=== PATIENT | female | born 1975 | race Caucasian/White ===

== ENCOUNTER 2016-12-25 09:48 | Emergency (ER) | payer OTHER ==
[2016-12-25] MEDS ORDERED: SODIUM CHLORIDE 0.9% 1,000 ML IV ONE (10:24)
[2016-12-25] MEDS ORDERED: diphenhydrAMINE INJ 50 MG/ML VIAL IVP STA (10:25)
[2016-12-25] MEDS ORDERED: DEXAMETHASONE 10 MG/ML VIAL IVP STA (10:25)
[2016-12-25] MEDS ORDERED: PROCHLORPERAZINE 10 MG/2 ML VIAL IVP STA (10:25)
[2016-12-25] MEDS ORDERED: KETOROLAC 60 MG/2 ML VIAL IVP STA (10:25)
[2016-12-25] MEDS ORDERED: MECLIZINE 12.5 MG TABLET PO STA (10:25)
[2016-12-25] MEDS ORDERED: KETOROLAC 30 MG/ML VIAL ONE (10:34)
[2016-12-25] MEDS ORDERED: diphenhydrAMINE INJ 50 MG/ML VIAL ONE (10:34)
[2016-12-25] MEDS ORDERED: DEXAMETHASONE 10 MG/ML VIAL ONE (10:35)
[2016-12-25] MEDS ORDERED: MECLIZINE 12.5 MG TABLET PO ONE (10:35)
[2016-12-25] MEDS ORDERED: PROCHLORPERAZINE 10 MG/2 ML VIAL ONE (10:35)
== END 2016-12-25 12:15 | disposition home or self-care (01) ==
DX: G43.109 Migraine with aura, not intractable, without status migrainosus (principal); H81.09 Meniere's disease, unspecified ear; G40.909 Epilepsy, unspecified, not intractable, without status epilepticus
CPT/HCPCS: 96374; 96375; 99283; 99284; A9270

== ENCOUNTER 2017-01-22 10:00 | Outpatient (CLI) | payer OTHER | END 2017-01-22 10:01 | disposition home or self-care (01) | DX: M79.662 Pain in left lower leg (principal) ==

== ENCOUNTER 2017-01-23 12:00 | Emergency (ER) | payer OTHER | END 2017-01-23 15:23 | disposition home or self-care (01) | DX: S86.912A Strain of unspecified muscle(s) and tendon(s) at lower leg level, left leg, initial encounter (principal); X58.XXXA Exposure to other specified factors, initial encounter; G40.909 Epilepsy, unspecified, not intractable, without status epilepticus; I73.00 Raynaud's syndrome without gangrene; H81.09 Meniere's disease, unspecified ear ==

== ENCOUNTER 2017-01-29 16:30 | Outpatient (CLI) | payer OTHER | END 2017-01-29 23:59 | disposition home or self-care (01) | DX: N30.10 Interstitial cystitis (chronic) without hematuria (principal) ==

== ENCOUNTER 2017-12-30 08:00 | Outpatient (CLI) | payer OTHER ==
[2017-12-30 19:32] LABS: BASOPHILS % (AUTO) 0.3 %; EOSINOPHILS # (AUTO) 0.1 10^3/uL (0.0-0.7); EOSINOPHILS % (AUTO) 1.6 %; HGB - HEMOGLOBIN 13.2 g/dL (12.0-16.0); LYMPHOCYTES # (AUTO) 1.4 10^3/uL (1.5-3.5); LYMPHOCYTES % (AUTO) 23.8 %; MEAN CORPUSCULAR HEMOGLOBIN 29.4 pg (27.0-31.0); MEAN CORPUSCULAR HGB CONC 33.2 g/dL (32.0-36.0); MEAN CORPUSCULAR VOLUME 88.6 fL (81.0-99.0); MEAN PLATELET VOLUME 8.4 fL (7.9-10.8); MONOCYTES # (AUTO) 0.3 10^3/uL (0.0-1.0); MONOCYTES % (AUTO) 4.9 %; NEUTROPHILS # (AUTO) 4.2 10^3/uL (1.5-6.6); NEUTROPHILS % (AUTO) 69.4 %; PLT - PLATELET COUNT 255 10^3/uL (130-450); RED BLOOD COUNT 4.48 10^6/uL (4.20-5.40); RED CELL DISTRIBUTION WIDTH 12.8 % (12.0-15.0); WHITE BLOOD COUNT 6.1 x10^3/uL (4.8-10.8)
[2017-12-31 13:41] LABS: HEPATITIS C ANTIBODY NON-REACTIVE (NON-REACTIVE); HIV AG/AB 4TH GEN NON-REACTIVE (NON-REACTIVE)
== END 2017-12-30 08:01 | disposition home or self-care (01) ==
LOC: LAB.WCP 08:00
PROVIDERS: ATTEND Physician Assistant
DX: Z20.2 Contact with and (suspected) exposure to infections with a predominantly sexual mode of transmission (principal); R10.13 Epigastric pain; R30.0 Dysuria
CPT/HCPCS: 36415; 81599; 85025; 86592; 86803; 87086; 87389; 87480; 87491; 87510; 87591; 87660

== ENCOUNTER 2017-12-30 08:00 | Outpatient (CLI) | payer OTHER | END 2017-12-30 08:01 | disposition home or self-care (01) | LOC: LAB.WCP 08:00 | PROVIDERS: ATTEND Physician Assistant | DX: R30.0 Dysuria (principal) | CPT/HCPCS: 87086 ==

== ENCOUNTER 2018-11-20 08:00 | Outpatient (CLI) | payer OTHER | END 2018-11-20 23:59 | disposition home or self-care (01) | LOC: LAB.R 08:00 | PROVIDERS: ATTEND Nurse Practitioner | DX: R30.0 Dysuria (principal); N30.90 Cystitis, unspecified without hematuria | CPT/HCPCS: 87086; 87181 ==

== ENCOUNTER 2019-11-08 10:46 | Emergency (ER) | payer OTHER ==
[2019-11-08 11:36] LABS: RAPID STREP SCREEN Negative (Negative)
--- NOTE | 2019-11-08 12:23 | ED Physician Documentation ---
PD HPI URI - Stated complaint Stated Complaint: SORE THROAT/COUGH - Chief complaint Chief Complaint: Heent - History obtained from History obtained from: Patient (She is been sick for 2 weeks with a cough that is worse when she lays down. It is nonproductive. She is not short of breath. She has nasal congestion and a couple days of sore throat as well. No fevers. No recent travel.) Review of Systems Constitutional: denies: Fever, Chills, Fatigue Ears: reports: Ear pain (She feels like the ear pain is radiating from the throat) Nose: reports: Rhinorrhea / runny nose, Congestion. 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 - Present Medications Home Medications: Ambulatory Orders Medication Instructions Recorded Confirmed Ibuprofen [Motrin] 400 mg PO Q6H PRN 06/20/14 01/23/17 Meclizine HCl [Antivert] 12.5 mg PO DAILY PRN 06/20/14 01/23/17 Ondansetron [Zofran] 4 mg PO Q6H PRN 06/20/14 01/23/17 Rizatriptan Benzoate [Maxalt] 5 mg PO DAILY PRN 08/01/14 01/23/17 LORazepam [Ativan] 1 mg PO TID PRN #10 tablet 08/02/14 01/23/17 Acyclovir 400 mg PO TID 01/29/15 01/23/17 hydrOXYzine PAMOATE [Vistaril] 25 mg PO DAILY 01/23/17 01/23/17 Guaifenesin/Pseudoephedrne HCl 1 each PO BID PRN #20 tab.er.12h 11/08/19 [Mucinex D ER 600-60 mg Tablet] Mometasone Furoate [Nasonex] 1 spray NS BID #1 spray.pump 11/08/19 - Allergies Allergies/Adverse Reactions: Allergies Allergy/AdvReac Type Severity Reaction Status Date / Time acetaminophen [From Vicodin] Allergy Unknown Verified 11/08/19 10:59 azithromycin Allergy Unknown Verified 11/08/19 10:59 codeine Allergy Unknown Verified 11/08/19 10:59 cyclobenzaprine HCl * Allergy Unknown Verified 11/08/19 10:59 [From Flexeril] hydrocodone bitartrate * Allergy Unknown Verified 11/08/19 10:59 [From Vicodin] meperidine HCl * Allergy Unknown Verified 11/08/19 10:59 [From Demerol] opium tincture Allergy Unknown Verified 11/08/19 10:59 promethazine HCl * Allergy Unknown Verified 11/08/19 10:59 [From Phenergan] - Social History Does the pt smoke?: No Smoking Status: Never smoker Does the pt drink ETOH?: No Does the pt have substance abuse?: No PD ED PE NORMAL - Vitals Vital signs reviewed: Yes - General General: Alert and oriented X 3, No acute distress - HEENT HEENT: PERRL, EOMI, Other (Red tonsillar pillars, no exudates or swelling. Minimal anterior cervical adenopathy, TMs are normal.) - Respiratory Respiratory: No respiratory distress, Clear bilaterally - Neuro Neuro: Alert and oriented X 3, Normal speech Results - Vitals Vitals: Vital Signs - 24 hr 11/08/19 10:59 Temperature 37 C Heart Rate 93 Respiratory 18 Rate Blood Pressure 103/61 O2 Saturation 99 Oxygen O2 Source Room air - Labs Labs: Laboratory Tests 11/08/19 11:06 Group A Strep Rapid Negative PD MEDICAL DECISION MAKING - ED course ED course: 43-year-old woman with signs and symptoms of a viral URI, rapid strep negative. Conservative care was advised. Departure - Departure Disposition: 01 Home, Self Care Clinical Impression: Viral URI Condition: Good Record reviewed to determine appropriate education?: Yes Instructions: ED URI Viral Prescriptions: Guaifenesin/Pseudoephedrne HCl [Mucinex D ER 600-60 mg Tablet] 1 each PO BID PRN #20 tab.er.12h PRN Reason: congestion Mometasone Furoate [Nasonex] 1 spray NS BID #1 spray.pump Comments: You were seen today for an illness that brought in some purposes sounds like a viral illness. Your strep test is negative. We will culture your throat and if a bacterial pathogen is isolated we will call you and call in antibiotics at that juncture. Return for new or worsening symptoms. Follow-up with your doctor in a week or 2 if not better.
[2019-11-08 12:32] VITALS: BP 123/75
== END 2019-11-08 12:31 | disposition home or self-care (01) ==
LOC: ED 10:46
DX: J06.9 Acute upper respiratory infection, unspecified (principal)
CPT/HCPCS: 87070; 87077; 87430; 99283; 99284

== ENCOUNTER 2019-12-14 08:59 | Emergency (ER) | payer OTHER ==
--- NOTE | 2019-12-14 09:20 | ED Physician Documentation ---
PD HPI HEENT - Stated complaint Stated Complaint: VOMITING/DIZZINESS - Chief complaint Chief Complaint: General - History obtained from History obtained from: Patient - History of Present Illness Timing - onset: Last night Timing - duration: Days (10/08) Timing - details: Abrupt onset, Still present Location: Other (She states she had onset of headache consistent with migraine associated with some nausea but then developed marked nausea and vomiting with onset of vertigo. It is worse when she opens her eyes and turns her head but still feeling nauseated even when holding still. She denies any localized weaknesses numbness visual loss or scotomata. She states she has had similar in the past with Mnire's disease and vertigo and also will get nausea and vomiting with her migraines. She denies any recent head injury. She has not had any cold or flu symptoms.) Improves: Other (moderately improved with holding head still) Worsens: Position Associated symptoms: Headache. No: Fever, Congestion, Swollen nodes, Facial swelling Similar symptoms before: Diagnosis (Has had Mnire's disease with episodes of labyrinthitis and positional vertigo. Has also had history of migraines in the past.) Recently seen: Not recently seen Review of Systems Constitutional: denies: Fever Nose: denies: Rhinorrhea / runny nose, Congestion Throat: denies: Sore throat Respiratory: denies: Cough GI: reports: Nausea, Vomiting. denies: Abdominal Pain, Diarrhea Skin: denies: Rash Neurologic: reports: Generalized weakness, Headache. 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 - Present Medications Home Medications: Ambulatory Orders Medication Instructions Recorded Confirmed Meclizine HCl [Antivert] 12.5 mg PO DAILY PRN 06/20/14 01/23/17 hydrOXYzine PAMOATE [Vistaril] 25 mg PO DAILY 01/23/17 01/23/17 LORazepam [Ativan] 1 mg PO Q8H PRN #15 tablet 12/14/19 Meclizine HCl [Motion Sickness 25 mg PO Q6H PRN #25 tablet 12/14/19 Relief] Ondansetron Odt [Zofran] 4 mg TL Q6H PRN #10 tablet 12/14/19 SUMAtriptan succinate [Sumatriptan 50 mg PO BID PRN #10 tablet 12/14/19 Succinate] dexAMETHasone [Decadron] 4 mg PO DAILY #5 tablet 12/14/19 - Allergies Allergies/Adverse Reactions: Allergies Allergy/AdvReac Type Severity Reaction Status Date / Time acetaminophen [From Vicodin] Allergy Unknown Verified 12/14/19 09:03 azithromycin Allergy Unknown Verified 12/14/19 09:03 codeine Allergy Unknown Verified 12/14/19 09:03 cyclobenzaprine HCl * Allergy Unknown Verified 12/14/19 09:03 [From Flexeril] hydrocodone bitartrate * Allergy Unknown Verified 12/14/19 09:03 [From Vicodin] meperidine HCl * Allergy Unknown Verified 12/14/19 09:03 [From Demerol] opium tincture Allergy Unknown Verified 12/14/19 09:03 promethazine HCl * Allergy Unknown Verified 12/14/19 09:03 [From Phenergan] - Social History Does the pt smoke?: No Smoking Status: Never smoker Does the pt drink ETOH?: No Does the pt have substance abuse?: No PD ED PE NORMAL - Vitals Vital signs reviewed: Yes - General General: Alert and oriented X 3, Well developed/nourished, Other (Appears very uncomfortable with nausea and some dry heaving. She is holding her head very still. 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, No motor deficit, No sensory deficit, Normal speech Eye Opening: Spontaneous (Reluctantly opens her eyes as it does increase her dizziness and nausea) Motor: Obeys Commands Verbal: Oriented GCS Score: 15 Results - Vitals Vitals: Vital Signs - 24 hr 12/14/19 12/14/19 12/14/19 09:03 09:26 11:20 Temperature 36.1 C L Heart Rate 86 85 76 Respiratory 20 24 18 Rate Blood Pressure 150/91 H 122/65 110/69 O2 Saturation 100 100 100 12/14/19 12/14/19 13:30 14:28 Temperature Heart Rate 77 77 Respiratory 18 16 Rate Blood Pressure 98/60 98/60 O2 Saturation 100 100 Oxygen O2 Source Room air - Labs Labs: Laboratory Tests 12/14/19 12/14/19 12/14/19 08:15 08:15 09:15 WBC 8.2 RBC 4.51 Hgb 13.8 Hct 39.5 MCV 87.6 MCH 30.6 MCHC 34.9 RDW 13.0 Plt Count 225 MPV 9.7 Neut # (Auto) 6.4 Lymph # (Auto) 1.3 L Haines # (Auto) 0.4 Eos # (Auto) 0.1 Baso # (Auto) 0.0 Absolute Nucleated RBC 0.00 Nucleated RBC % 0.0 Sodium 135 Potassium 3.2 L Chloride 106 Carbon Dioxide 21 Anion Gap 8.0 BUN 18 Creatinine 0.6 Estimated GFR (MDRD) 108 Glucose 134 H Calcium 9.0 Magnesium 2.3 Total Bilirubin 0.7 AST 24 ALT 32 Alkaline Phosphatase 65 Total Protein 7.0 Albumin 4.1 Globulin 2.9 Albumin/Globulin Ratio 1.4 Lipase 31 Urine Color Urine Clarity Urine pH Ur Specific [place] Urine Protein Urine Glucose (UA) Urine Ketones Urine Occult Blood Urine Nitrite Urine Bilirubin Urine Urobilinogen Ur Leukocyte Esterase Ur Microscopic Review Urine Culture Comments Urine HCG, Qual 12/14/19 13:00 WBC RBC Hgb Hct MCV MCH MCHC RDW Plt Count MPV Neut # (Auto) Lymph # (Auto) Haines # (Auto) Eos # (Auto) Baso # (Auto) Absolute Nucleated RBC Nucleated RBC % Sodium Potassium Chloride Carbon Dioxide Anion Gap BUN Creatinine Estimated GFR (MDRD) Glucose Calcium Magnesium Total Bilirubin AST ALT Alkaline Phosphatase Total Protein Albumin Globulin Albumin/Globulin Ratio Lipase Urine Color YELLOW Urine Clarity CLEAR Urine pH 8.0 H Ur Specific [place] 1.020 Urine Protein NEGATIVE Urine Glucose (UA) NEGATIVE Urine Ketones NEGATIVE Urine Occult Blood NEGATIVE Urine Nitrite NEGATIVE Urine Bilirubin NEGATIVE Urine Urobilinogen 0.2 (NORMAL) Ur Leukocyte Esterase NEGATIVE Ur Microscopic Review NOT INDICATED Urine Culture Comments NOT INDICATED Urine HCG, Qual NEGATIVE - Rads (name of study) head CT Radiology: Prelim report reviewed (no acute process), See rad report PD MEDICAL DECISION MAKING - ED course Complexity details: re-evaluated patient (Patient with some improvement with meds targeted at migraine. ), considered differential (consider complex migraine as vertigo onset then with migraine type headache. Still with vertigo though. No focal deficits otherwise. Has had Menieres and migraines in the past, so abrupt vertigo and then triggered migraine. Will try meds for vertigo and also for migraine. ), d/w patient ED course: Slow improvement with meds, with improved migraine headahce and vertigo/nausea parallel. Departure - Departure Disposition: Home, Self Care Clinical Impression: Acute onset of severe vertigo Headache Qualifiers: Headache type: unspecified Headache chronicity pattern: acute headache Intractability: not intractable Qualified Code(s): R51 - Headache Condition: Stable Record reviewed to determine appropriate education?: Yes Instructions: ED Headache Migraine, ED Vertigo Unspecified Prescriptions: dexAMETHasone [Decadron] 4 mg PO DAILY #5 tablet LORazepam [Ativan] 1 mg PO Q8H PRN #15 tablet PRN Reason: Vertigo Meclizine HCl [Motion Sickness Relief] 25 mg PO Q6H PRN #25 tablet PRN Reason: Vertigo Ondansetron Odt [Zofran] 4 mg TL Q6H PRN #10 tablet PRN Reason: Nausea / Vomiting SUMAtriptan succinate [Sumatriptan Succinate] 50 mg PO BID PRN #10 tablet PRN Reason: Migraine Comments: Small frequent fluids. Stay home and rested today and tomorrow if needed. Meclizine every 6-8 hours if needed for vertigo/dizziness. Decadron steroid daily for 5 days to help with the symptoms as well. Add lorazepam if needed for vertigo as it does work well for that. For subsequent migraines, you can try Imitrex along with 1 of the Zofran and see if it helps with that. Recheck if not improved well over the next couple of days. Discharge Date/Time: 12/14/19 14:25
[2019-12-14 09:27] LABS: BASOPHILS % (AUTO) 0.2 %; EOSINOPHILS # (AUTO) 0.1 10^3/uL (0.0-0.7); EOSINOPHILS % (AUTO) 0.7 %; HGB - HEMOGLOBIN 13.8 g/dL (12.0-16.0); LYMPHOCYTES # (AUTO) 1.3 10^3/uL (1.5-3.5); LYMPHOCYTES % (AUTO) 15.8 %; MEAN CORPUSCULAR HEMOGLOBIN 30.6 pg (27.0-31.0); MEAN CORPUSCULAR HGB CONC 34.9 g/dL (32.0-36.0); MEAN CORPUSCULAR VOLUME 87.6 fL (81.0-99.0); MEAN PLATELET VOLUME 9.7 fL (7.9-10.8); MONOCYTES # (AUTO) 0.4 10^3/uL (0.0-1.0); MONOCYTES % (AUTO) 4.3 %; NEUTROPHILS # (AUTO) 6.4 10^3/uL (1.5-6.6); NEUTROPHILS % (AUTO) 78.6 %; PLT - PLATELET COUNT 225 10^3/uL (130-450); RED BLOOD COUNT 4.51 10^6/uL (4.20-5.40); WHITE BLOOD COUNT 8.2 x10^3/uL (4.8-10.8)
[2019-12-14] MEDS ORDERED: diazePAM INJ 5 MG/ML SYRINGE IVP STA (09:29)
[2019-12-14] MEDS ORDERED: KETOROLAC 30 MG/ML VIAL IVP STA (09:29)
[2019-12-14] MEDS ORDERED: SODIUM CHLORIDE 0.9% 1,000 ML IV ONE ×2 (09:29→11:28)
[2019-12-14] MEDS ORDERED: DEXAMETHASONE 10 MG/ML VIAL IVP STA (09:31)
[2019-12-14] MEDS ORDERED: ONDANSETRON 4 MG/2 ML VIAL IVP STA ×2 (09:31→11:02)
[2019-12-14] MEDS ORDERED: MECLIZINE 12.5 MG TABLET PO STA (09:31)
[2019-12-14 09:37] LABS: ALBUMIN 4.1 g/dL (3.2-5.5); ALBUMIN/GLOBULIN RATIO 1.4 (1.0-2.2); BILIRUBIN,TOTAL 0.7 mg/dL (0.2-1.0); CREATININE 0.6 mg/dL (0.4-1.0)
[2019-12-14] MEDS ORDERED: LORazepam 2 MG/ML VIAL IVP STA (10:07)
[2019-12-14] MEDS ORDERED: diphenhydrAMINE INJ 50 MG/ML VIAL IVP STA (10:07)
--- NOTE | 2019-12-14 12:13 | CT Report ---
Reason: dizziness and headached Procedure Date: 12/14/2019 Accession Number: [id number] / [id number] Procedure: CT - HEAD WO CPT Code: Final Report FULL RESULT: EXAM: CT HEAD EXAM DATE: 12/14/2019 11:55 AM. CLINICAL HISTORY: Dizziness and headache. COMPARISON: None. TECHNIQUE: Multiaxial CT images were obtained from the foramen magnum to the vertex. Reformats: Sagittal and coronal. IV contrast: None. In accordance with CT protocol optimization, one or more of the following dose reduction techniques were utilized for this exam: automated exposure control, adjustment of mA and/or KV based on patient size, or use of iterative reconstructive technique. FINDINGS: Parenchyma: No intraparenchymal hemorrhage. No evidence of mass, midline shift, or CT findings of infarction. [place]elongo-white differentiation is distinct. Extraaxial Spaces: Normal for age. No subdural or epidural collections identified. Ventricles: Normal in size and position. Sinuses and Orbits: Imaged paranasal sinuses, orbits, and mastoids show no significant abnormality. Bones: No evidence of fracture or calvarial defect. Other: None. IMPRESSION: Normal head CT. RADIA
[2019-12-14] MEDS ORDERED: METOCLOPRAMIDE 10 MG/2 ML VIAL IVP STA (12:44)
[2019-12-14 13:09] LABS: BILIRUBIN,URINE NEGATIVE (NEGATIVE); GLUCOSE, URINE (UA) NEGATIVE (NEGATIVE); KETONES,URINE (UA) NEGATIVE (NEGATIVE); LEUKOCYTE ESTERASE, URINE NEGATIVE (NEGATIVE); NITRITE,URINE NEGATIVE (NEGATIVE); OCCULT BLOOD,URINE NEGATIVE (NEGATIVE); PROTEIN,URINE NEGATIVE (NEGATIVE); UROBILINOGEN,URINE 0.2 (NORMAL) E.U./dL (NORMAL)
[2019-12-14 13:15] LABS: CLARITY,URINE CLEAR (CLEAR); HCG UR QUAL NEGATIVE
[2019-12-14 13:43] VITALS: BP 98/60
== END 2019-12-14 14:25 | disposition home or self-care (01) ==
LOC: ED 08:59
DX: G43.909 Migraine, unspecified, not intractable, without status migrainosus (principal); R42 Dizziness and giddiness; R11.2 Nausea with vomiting, unspecified; R53.1 Weakness
CPT/HCPCS: 36415; 70450; 80053; 81003; 81025; 83690; 83735; 85025; 96361; 96374; 96375; 96376; 99284; 99285; A9270; J1200; J2060; J2765; 81001; 87086

== ENCOUNTER 2019-12-22 15:21 | Outpatient (CLI) | payer OTHER | END 2019-12-22 15:22 | disposition critical access hospital (66) | LOC: EMS 15:21 | PROVIDERS: ATTEND Surgery | DX: R10.30 Lower abdominal pain, unspecified (principal); R30.9 Painful micturition, unspecified | CPT/HCPCS: A0425; A0429 ==

== ENCOUNTER 2019-12-22 15:38 | Emergency (ER) | payer OTHER ==
[2019-12-22] MEDS ORDERED: KETOROLAC 30 MG/ML VIAL IVP STA (16:01)
[2019-12-22] MEDS ORDERED: SODIUM CHLORIDE 0.9% 1,000 ML IV ONE (16:01)
--- NOTE | 2019-12-22 16:07 | ED Physician Documentation ---
PD HPI FEMALE - Stated complaint Stated Complaint: AB PX - Chief complaint Chief Complaint: Abd Pain - History obtained from History obtained from: Patient - History of Present Illness Timing - onset: How many days ago (33) Timing - duration: Days Timing - details: Gradual onset, Still present Associated symptoms: Back pain, Dysuria, Urinary frequency Contributing factors: No: Similar symptoms before: Diagnosis (UTI) Recently seen: Clinic (today) - Additional information Additional information: 44-year-old female has developed urinary urgency frequency and dysuria feels bloated and has cramping in her pelvis radiating up her back. She states that if she tries to to move around at all she has severe spasm in her back. She has not had fever with this she has had nausea she has had vomiting once and she has been given 8 mg of Zofran in the clinic and has not had vomiting since. She states that she began to decompensate in the clinic and was transferred here by ambulance. Medics in route stated the patient was on the telephone the entire time they were in the rig and the patient did not appear to be in distress. He was not able to start an IV or get history from the patient. Patient arrives to hear on her phone and hysterical with any movement. Review of Systems Constitutional: denies: Fever Eyes: denies: Decreased vision Ears: denies: Ear pain Nose: denies: Rhinorrhea / runny nose, Congestion Throat: denies: Sore throat Cardiac: denies: Chest pain / pressure, Palpitations Respiratory: denies: Dyspnea, Cough GI: reports: Abdominal Pain, Abdominal Swelling, Nausea, Vomiting : reports: Dysuria, Frequency Skin: denies: Rash Musculoskeletal: reports: Back pain. 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 - Present Medications Home Medications: Ambulatory Orders Medication Instructions Recorded Confirmed Meclizine HCl [Antivert] 12.5 mg PO DAILY PRN 06/20/14 01/23/17 hydrOXYzine PAMOATE [Vistaril] 25 mg PO DAILY 01/23/17 01/23/17 LORazepam [Ativan] 1 mg PO Q8H PRN #15 tablet 12/14/19 Meclizine HCl [Motion Sickness 25 mg PO Q6H PRN #25 tablet 12/14/19 Relief] Ondansetron Odt [Zofran] 4 mg TL Q6H PRN #10 tablet 12/14/19 SUMAtriptan succinate [Sumatriptan 50 mg PO BID PRN #10 tablet 12/14/19 Succinate] dexAMETHasone [Decadron] 4 mg PO DAILY #5 tablet 12/14/19 Sulfamethoxazole/Trimethoprim 1 each PO BID #14 tablet 12/22/19 [Sulfamethoxazole-Tmp Ds Tablet] - Allergies Allergies/Adverse Reactions: Allergies Allergy/AdvReac Type Severity Reaction Status Date / Time acetaminophen [From Vicodin] Allergy Unknown Verified 12/22/19 15:44 azithromycin Allergy Unknown Verified 12/22/19 15:44 codeine Allergy Unknown Verified 12/22/19 15:44 cyclobenzaprine HCl * Allergy Unknown Verified 12/22/19 15:44 [From Flexeril] hydrocodone bitartrate * Allergy Unknown Verified 12/22/19 15:44 [From Vicodin] meperidine HCl * Allergy Unknown Verified 12/22/19 15:44 [From Demerol] opium tincture Allergy Unknown Verified 12/22/19 15:44 promethazine HCl * Allergy Unknown Verified 12/22/19 15:44 [From Phenergan] - Social History Does the pt smoke?: No Smoking Status: Never smoker Does the pt drink ETOH?: No Does the pt have substance abuse?: No PD ED PE NORMAL - Vitals Vital signs reviewed: Yes (hypertension ) - General General: Alert and oriented X 3, Well developed/nourished, Other (Distracted 44-year-old female is hysterical with any movement she is crying and not providing adequate history.) - HEENT HEENT: Atraumatic, PERRL, EOMI - Neck Neck: Supple, no meningeal sign, No bony TTP - Cardiac Cardiac: RRR, No murmur - Respiratory Respiratory: No respiratory distress, Clear bilaterally - Abdomen Abdomen: Soft, Other (anterior suprapubic tenderness) - Back Back: Other (bilateral CVA tenderness is not specific. The pain appears to be from the paraspinous muscles lower in the lumbar spine. ) - Derm Derm: Normal color, Warm and dry, No rash - Extremities Extremities: No deformity, No edema, No calf tenderness / cord - Neuro Neuro: Alert and oriented X 3, rn emergency 2-12 intact, No motor deficit, No sensory deficit, Normal speech Eye Opening: Spontaneous Motor: Obeys Commands Verbal: Oriented GCS Score: 15 - Psych Psych: Normal mood, Normal affect Results - Vitals Vitals: Vital Signs - 24 hr 12/22/19 12/22/19 12/22/19 15:44 17:00 18:15 Temperature 36.5 C 36.2 C L Heart Rate 82 93 91 Respiratory 18 18 18 Rate Blood Pressure 144/83 H 98/66 111/65 O2 Saturation 100 100 100 12/22/19 18:22 Temperature 36.1 C L Heart Rate 72 Respiratory 18 Rate Blood Pressure 115/49 L O2 Saturation 100 Oxygen O2 Source Room air - Labs Labs: Laboratory Tests 12/22/19 12/22/19 12/22/19 16:10 16:10 16:21 WBC 11.7 H RBC 4.36 Hgb 13.2 Hct 38.6 MCV 88.5 MCH 30.3 MCHC 34.2 RDW 13.2 Plt Count 255 MPV 9.6 Neut # (Auto) 9.9 H Lymph # (Auto) 1.1 L Mower # (Auto) 0.6 Eos # (Auto) 0.1 Baso # (Auto) 0.0 Absolute Nucleated RBC 0.00 Nucleated RBC % 0.0 Sodium 132 L Potassium 3.3 L Chloride 99 L Carbon Dioxide 22 Anion Gap 11.0 BUN 21 H Creatinine 0.7 Estimated GFR (MDRD) 90 Glucose 106 H Lactic Acid 1.2 Calcium 9.1 Total Bilirubin 0.7 AST 27 ALT 27 Alkaline Phosphatase 61 Total Protein 6.6 L Albumin 3.7 Globulin 2.9 Albumin/Globulin Ratio 1.3 Lipase 33 Urine Color Urine Clarity Urine pH Ur Specific [place] Urine Protein Urine Glucose (UA) Urine Ketones Urine Occult Blood Urine Nitrite Urine Bilirubin Urine Urobilinogen Ur Leukocyte Esterase Urine RBC Urine WBC Ur Squamous Epith Cells Urine Bacteria Ur Microscopic Review Urine Culture Comments Urine HCG, Qual 12/22/19 12/22/19 17:00 17:00 WBC RBC Hgb Hct MCV MCH MCHC RDW Plt Count MPV Neut # (Auto) Lymph # (Auto) [place] # (Auto) Eos # (Auto) Baso # (Auto) Absolute Nucleated RBC Nucleated RBC % Sodium Potassium Chloride Carbon Dioxide Anion Gap BUN Creatinine Estimated GFR (MDRD) Glucose Lactic Acid Calcium Total Bilirubin AST ALT Alkaline Phosphatase Total Protein Albumin Globulin Albumin/Globulin Ratio Lipase Urine Color YELLOW Urine Clarity CLOUDY Urine pH 7.5 Ur Specific [place] 1.020 1.015 Urine Protein 30 H Urine Glucose (UA) NEGATIVE Urine Ketones NEGATIVE Urine Occult Blood LARGE H Urine Nitrite NEGATIVE Urine Bilirubin NEGATIVE Urine Urobilinogen 0.2 (NORMAL) Ur Leukocyte Esterase LARGE H Urine RBC 11-25 H Urine WBC >25 H Ur Squamous Epith Cells FEW Squamous Urine Bacteria Many H Ur Microscopic Review INDICATED Urine Culture Comments INDICATED Urine HCG, Qual NEGATIVE PD MEDICAL DECISION MAKING - ED course Complexity details: considered differential, d/w patient ED course: 44 y/o female with pyelonephritis is in a pain crisis when she arrives to the ED and she is given saline and toradal with improvement. She is given Rocephin IV as well. She is much improved no longer tearful and anxious. Departure - Departure Disposition: 01 Home, Self Care Clinical Impression: Pyelonephritis Condition: Stable Instructions: ED Kidney Infec Female Follow-Up: Lisbet Carter PA [Provider Admit Priv/Credential] - Prescriptions: Sulfamethoxazole/Trimethoprim [Sulfamethoxazole-Tmp Ds Tablet] 1 each PO BID #14 tablet Discharge Date/Time: 12/22/19 18:57
[2019-12-22 16:21] LABS: BASOPHILS % (AUTO) 0.3 %; EOSINOPHILS # (AUTO) 0.1 10^3/uL (0.0-0.7); EOSINOPHILS % (AUTO) 0.4 %; HGB - HEMOGLOBIN 13.2 g/dL (12.0-16.0); LYMPHOCYTES # (AUTO) 1.1 10^3/uL (1.5-3.5); LYMPHOCYTES % (AUTO) 9.7 %; MEAN CORPUSCULAR HEMOGLOBIN 30.3 pg (27.0-31.0); MEAN CORPUSCULAR HGB CONC 34.2 g/dL (32.0-36.0); MEAN CORPUSCULAR VOLUME 88.5 fL (81.0-99.0); MEAN PLATELET VOLUME 9.6 fL (7.9-10.8); MONOCYTES # (AUTO) 0.6 10^3/uL (0.0-1.0); MONOCYTES % (AUTO) 4.8 %; NEUTROPHILS # (AUTO) 9.9 10^3/uL (1.5-6.6); NEUTROPHILS % (AUTO) 84.3 %; PLT - PLATELET COUNT 255 10^3/uL (130-450); RED BLOOD COUNT 4.36 10^6/uL (4.20-5.40); RED CELL DISTRIBUTION WIDTH 13.2 % (12.0-15.0); WHITE BLOOD COUNT 11.7 x10^3/uL (4.8-10.8)
[2019-12-22 16:38] LABS: ALBUMIN 3.7 g/dL (3.2-5.5); ALBUMIN/GLOBULIN RATIO 1.3 (1.0-2.2); BILIRUBIN,TOTAL 0.7 mg/dL (0.2-1.0); CALCIUM 9.1 mg/dL (8.5-10.3); CREATININE 0.7 mg/dL (0.4-1.0); TOTAL PROTEIN 6.6 g/dL (6.7-8.2)
[2019-12-22 17:12] LABS: BILIRUBIN,URINE NEGATIVE (NEGATIVE); GLUCOSE, URINE (UA) NEGATIVE (NEGATIVE); KETONES,URINE (UA) NEGATIVE (NEGATIVE); LEUKOCYTE ESTERASE, URINE LARGE (NEGATIVE); NITRITE,URINE NEGATIVE (NEGATIVE); OCCULT BLOOD,URINE LARGE (NEGATIVE); PH,URINE 7.5 PH (5.0-7.5); PROTEIN,URINE 30 mg/dL (NEGATIVE); UROBILINOGEN,URINE 0.2 (NORMAL) E.U./dL (NORMAL)
[2019-12-22 17:13] LABS: CLARITY,URINE CLOUDY (CLEAR)
[2019-12-22] MEDS ORDERED: cefTRIAXone 1 GM in SODIUM CHLORIDE 0.9% MINIBAG 100 ML IV STA (17:14)
[2019-12-22 17:20] LABS: BACTERIA,URINE Many /HPF (None Seen); SQUAMOUS EPITHELIAL CELL,UR FEW Squamous (<= Few)
[2019-12-22 18:21] LABS: HCG UR QUAL NEGATIVE
[2019-12-22 18:22] VITALS: BP 115/49
== END 2019-12-22 18:57 | disposition home or self-care (01) ==
LOC: EDUNIT# → ED 15:38
DX: N12 Tubulo-interstitial nephritis, not specified as acute or chronic (principal)
CPT/HCPCS: 36415; 80053; 81001; 81003; 81025; 83605; 83690; 85025; 87086; 87181; 96361; 96365; 96375; 99284

== ENCOUNTER 2020-04-14 15:30 | Outpatient (CLI) | payer OTHER | END 2020-04-14 23:59 | disposition home or self-care (01) | LOC: LAB 15:30 | PROVIDERS: ATTEND Nurse Practitioner Family | DX: R10.9 Unspecified abdominal pain (principal) | CPT/HCPCS: 87086 ==

== ENCOUNTER 2020-07-15 10:11 | Outpatient (CLI) | payer OTHER ==
[2020-07-15 11:46] LABS: BASOPHILS % (AUTO) 0.4 %; EOSINOPHILS # (AUTO) 0.2 10^3/uL (0.0-0.7); EOSINOPHILS % (AUTO) 4.2 %; LYMPHOCYTES # (AUTO) 1.5 10^3/uL (1.5-3.5); LYMPHOCYTES % (AUTO) 26.5 %; MEAN CORPUSCULAR HEMOGLOBIN 29.5 pg (27.0-31.0); MEAN CORPUSCULAR VOLUME 89.3 fL (81.0-99.0); MEAN PLATELET VOLUME 9.8 fL (7.9-10.8); MONOCYTES # (AUTO) 0.2 10^3/uL (0.0-1.0); MONOCYTES % (AUTO) 4.1 %; NEUTROPHILS # (AUTO) 3.7 10^3/uL (1.5-6.6); NEUTROPHILS % (AUTO) 64.6 %; PLT - PLATELET COUNT 277 10^3/uL (130-450); RED BLOOD COUNT 4.75 10^6/uL (4.20-5.40); WHITE BLOOD COUNT 5.7 x10^3/uL (4.8-10.8)
[2020-07-15 12:17] LABS: ALBUMIN 4.1 g/dL (3.2-5.5); ALBUMIN/GLOBULIN RATIO 1.3 (1.0-2.2); BILIRUBIN,TOTAL 0.6 mg/dL (0.2-1.0); CALCIUM 9.3 mg/dL (8.5-10.3); CREATININE 0.7 mg/dL (0.4-1.0); TOTAL PROTEIN 7.3 g/dL (6.7-8.2)
[2020-07-15 12:59] LABS: FOLLICLE STIMULATING HORMONE 28.81 mIU/mL
[2020-07-16 06:10] LABS: PROGESTERONE 3.7 ng/mL
[2020-07-16 13:12] LABS: HEPATITIS C ANTIBODY NON-REACTIVE (NON-REACTIVE)
[2020-07-16 13:41] LABS: HIV AG/AB 4TH GEN NON-REACTIVE (NON-REACTIVE)
== END 2020-07-15 23:59 | disposition home or self-care (01) ==
LOC: LAB.WCP 10:11
PROVIDERS: ATTEND Physician Assistant
DX: R53.83 Other fatigue (principal); Z11.3 Encounter for screening for infections with a predominantly sexual mode of transmission
CPT/HCPCS: 36415; 80053; 82670; 83001; 84144; 84443; 85025; 86803; 87389

== ENCOUNTER 2020-08-03 16:50 | Outpatient (CLI) | payer OTHER ==
--- NOTE | 2020-08-04 17:03 | Ultrasound Report ---
PROCEDURE: Pelvic w/Transvaginal INDICATIONS: IRREGULAR MENSTRUATION TECHNIQUE: Real-time scanning was performed of the pelvic organs, with image documentation. Additional endovagi nal scanning was necessary due to incomplete visualization of the adnexal and endometrial structures by transabdominal scanning. COMPARISON: None. FINDINGS: Transabdominal scanning: Limited scanning through the kidneys demonstrates no hydronephrosis. No pa thologic free abdominal or pelvic fluid. Evaluation limited by body habitus. Endovaginal scanning: Uterus: Uterus measures 8.7 x 4 x 5.1 cm. The endometrium measures approximately 0.6 cm but is indist inct and not well visualized. There is also a suspected anterior midline intramural fibroid within th e myometrium anteriorly measuring approximately 1.8 x 1.7 x 1.4 cm. A submucosal component cannot be excluded. There are small nabothian cysts. Ovaries: The right ovary measures 2.7 x 2.1 x 2.9 cm and the left ovary measures 2.6 x 0.9 x 2.2 cm. There is a thin-walled cyst in the right ovary measuring up to 1.8 cm likely representing a dominant follicle. No adnexal masses. IMPRESSION: 1. Indistinct appearance of the endometrium which is not well visualized. The findings are nonspecifi c but raise the possibility of adenomyosis. However, evaluation is also limited by body habitus. 2. No adnexal masses. 3. Suggestion of an intramural fibroid which is also not well visualized. Reviewed by: Scout Garcia MD on 08/04/2020 5:02 PM PDT Approved by: Scout Garcia MD on 08/04/2020 5:02 PM PDT Station ID: [id number]
== END 2020-08-03 16:51 | disposition home or self-care (01) ==
LOC: DI 16:50
PROVIDERS: ATTEND Physician Assistant
DX: R93.89 Abnormal findings on diagnostic imaging of other specified body structures (principal)
CPT/HCPCS: 76830; 76856

== ENCOUNTER 2020-09-29 08:00 | Outpatient (CLI) | payer OTHER ==
[2020-09-29 20:26] LABS: CANDIDA GROUP DNA NEGATIVE (NEGATIVE); CANDIDA KRUSEI DNA NEGATIVE (NEGATIVE); TRICHOMONAS VAGINALIS DNA NEGATIVE (NEGATIVE)
[2020-09-29 21:21] LABS: TRICHOMONAS VAGINALIS DNA NEGATIVE (NEGATIVE)
== END 2020-09-29 23:59 ==
LOC: LAB.N 08:00
PROVIDERS: ATTEND Advanced Practice Midwife
DX: Z11.3 Encounter for screening for infections with a predominantly sexual mode of transmission (principal); N92.6 Irregular menstruation, unspecified; Z20.2 Contact with and (suspected) exposure to infections with a predominantly sexual mode of transmission; R10.2 Pelvic and perineal pain
CPT/HCPCS: 87491; 87591; 87661; 87801

== ENCOUNTER 2020-11-28 16:52 | Outpatient (CLI) | payer OTHER ==
[2020-11-29 12:46] LABS: HEPATITIS B SURFACE ANTIGEN NON-REACTIVE (NON-REACTIVE); HEPATITIS C ANTIBODY NON-REACTIVE (NON-REACTIVE)
[2020-11-29 13:41] LABS: HIV AG/AB 4TH GEN NON-REACTIVE (NON-REACTIVE)
== END 2020-11-28 16:53 | disposition home or self-care (01) ==
LOC: LAB 16:52
PROVIDERS: ATTEND Advanced Practice Midwife
DX: Z11.3 Encounter for screening for infections with a predominantly sexual mode of transmission (principal)
CPT/HCPCS: 36415; 86592; 86593; 86780; 86803; 87340; 87389

== ENCOUNTER 2021-01-23 07:00 | Outpatient (CLI) | payer OTHER | END 2021-01-23 23:59 | disposition home or self-care (01) | LOC: LAB.N 07:00 | PROVIDERS: ATTEND Nurse Practitioner | DX: N39.0 Urinary tract infection, site not specified (principal) | CPT/HCPCS: 87086 ==

== ENCOUNTER 2021-04-09 13:21 | Outpatient (CLI) | payer OTHER ==
[2021-04-09 14:17] LABS: HCG UR QUAL NEGATIVE
== END 2021-04-09 13:22 | disposition home or self-care (01) ==
LOC: LAB 13:21
PROVIDERS: ATTEND Obstetrics & Gynecology
DX: Z01.812 Encounter for preprocedural laboratory examination (principal); N92.0 Excessive and frequent menstruation with regular cycle; N94.6 Dysmenorrhea, unspecified; N80.0 Endometriosis of uterus; R10.2 Pelvic and perineal pain; G89.29 Other chronic pain
CPT/HCPCS: 81025; 86850; 86900; 86901

== ENCOUNTER 2021-04-11 07:09 | Day surgery (SDC) | payer OTHER ==
[~2021-04-11 07:09] MED LIST: ACETAMINOPHEN 1,000 MG/100 ML 100 ML IV ONE; CELECOXIB 100 MG CAPSULE PO ONE; GABAPENTIN 400 MG CAPSULE ONE; ceFAZolin 2 GM/50 ML 2 GM/50 ML BAG IV ONE
[2021-04-11] MEDS ORDERED: PHENAZOPYRIDINE 100 MG TABLET PO ONE (07:45)
[2021-04-11] MEDS ORDERED: diphenhydrAMINE INJ 50 MG/ML VIAL ONE ×2 (07:57→09:11)
[2021-04-11] MEDS ORDERED: ROCURONIUM 50 MG/5 ML VIAL ONE (08:03)
[2021-04-11] MEDS ORDERED: PROPOFOL 200 MG/20 ML VIAL IVP ONE (08:03)
[2021-04-11] MEDS ORDERED: DEXAMETHASONE 4 MG/ML VIAL ONE (08:03)
[2021-04-11] MEDS ORDERED: KETAMINE 500 MG/10 ML VIAL ONE (08:03)
[2021-04-11] MEDS ORDERED: ONDANSETRON 4 MG/2 ML VIAL ONE (08:03)
[2021-04-11] MEDS ORDERED: fentaNYL 100 MCG/2 ML VIAL ONE (08:03)
[2021-04-11] MEDS ORDERED: LIDOCAINE-MPF 2% 5 ML VIAL ONE ×2 (08:03→08:34)
[2021-04-11] MEDS ORDERED: MIDAZOLAM 2 MG/2 ML VIAL ONE (08:03)
[2021-04-11] MEDS ORDERED: LACTATED RINGERS 1,000 ML IV ONE ×3 (08:10→14:00)
[2021-04-11] MEDS ORDERED: LIDOCAINE 2%-EPI 1:100000 20 ML MDV ONE (08:13)
[2021-04-11] MEDS ORDERED: BUPIVACAINE 0.5% PF 30 ML VIAL ONE (08:14)
[2021-04-11] MEDS ORDERED: HYDROmorphone 0.5 MG/0.5 ML SYRINGE IVP PRN (08:27)
[2021-04-11] MEDS ORDERED: METOCLOPRAMIDE 10 MG/2 ML VIAL IVP PRN (08:27)
[2021-04-11] MEDS ORDERED: ONDANSETRON 4 MG/2 ML VIAL IVP PRN ×2 (08:27→13:18)
[2021-04-11] MEDS ORDERED: ATROPINE ABBOJECT 1 MG/10 ML SYRINGE IVP PRN (08:27)
[2021-04-11] MEDS ORDERED: NALOXONE 0.4 MG/ML VIAL IVP PRN (08:27)
[2021-04-11] MEDS ORDERED: MORPHINE 2 MG/ML CARPUJECT IVP PRN (08:27)
[2021-04-11] MEDS ORDERED: ePHEDrine 50 MG/ML VIAL IVP PRN (08:27)
[2021-04-11] MEDS ORDERED: fentaNYL 100 MCG/2 ML VIAL IVP PRN ×2 (08:27→13:25)
--- NOTE | 2021-04-11 08:30 | ANESTHESIA ---
Pre-Anesthesia VS, & Labs - Diagnosis Menorrhagia, adenomyosis, chronic pelvic pain - Procedure Total Laparoscopic Hysterectomy Vital Signs: Temp Pulse Resp BP Pulse Ox 36.0 C L 67 16 105/70 96 04/11/21 07:46 04/11/21 07:46 04/11/21 07:46 04/11/21 07:46 04/11/21 07:46 Height: 4 ft 9 in Weight (kg): 49 kg Body Mass Index: 23.3 BMI Classification: Healthy weight - NPO >8 hours - Is Patient ?: No - Lab Results Lab results reviewed: Yes Home Medications and Allergies Home Medications: Ambulatory Orders Loratadine [Claritin] 10 mg PO DAILY 04/06/21 Norethindrone [Ortho Micronor] 0.35 mg PO DAILY 04/06/21 Valacyclovir HCl [Valtrex] 1 gm PO BID PRN 04/06/21 Active Medications Scopolamine HBr (Scopolamine Patch) 1 patch TOP Q3D ROCIO hydrOXYzine PAMOATE [Vistaril] 25 - 50 mg PO QPM 01/23/17 Loratadine [Claritin] 10 mg PO DAILY 04/06/21 Norethindrone [Ortho Micronor] 0.35 mg PO DAILY 04/06/21 Valacyclovir HCl [Valtrex] 1 gm PO BID PRN 04/06/21 Allergies/Adverse Reactions: Allergies Allergy/AdvReac Type Severity Reaction Status Date / Time azithromycin Allergy Unknown Verified 12/22/19 15:44 codeine Allergy Unknown Verified 04/06/21 10:55 cyclobenzaprine HCl * Allergy Unknown Verified 12/22/19 15:44 [From Flexeril] hydrocodone bitartrate * Allergy Unknown Verified 12/22/19 15:44 [From Vicodin] meperidine HCl * Allergy Unknown Verified 12/22/19 15:44 [From Demerol] opium tincture Allergy Unknown Verified 12/22/19 15:44 promethazine HCl * Allergy psychotic Verified 04/06/21 10:55 [From Phenergan] Anes History & Medical History - Anesthetic History Anesthesia Complications: reports: Post-Operative Nausea/Vomiting Family history of Anesthesia Complications: Denies Family history of Malignant Hyperthermia: Denies - Medical History Cardiovascular: reports: None Pulmonary: reports: None Gastrointestinal: reports: None Urinary: reports: Other Neuro: reports: Migraines, Other (Menieres disease) Musculoskeletal: reports: None Endocrine/Autoimmune: reports: None Skin: reports: None Smoking Status: Never smoker - Surgical History Gynecologic: reports: section, Endometrial ablation Exam General: Alert, Oriented x3, Cooperative, No acute distress Dental: WNL Neck Mobility: Normal Mallampati classification: I Respiratory: Lungs clear, Normal breath sounds, No respiratory distress, No a ccessory muscle use Cardiovascular: Regular rate, Normal S1, Normal S2, No murmurs Plan Anesthesia Type: General Consent for Procedure(s) Verified and Reviewed: Yes Code Status: Attempt Resuscitation ASA classification: 2-Mild systemic disease Is this case an emergency?: No
[2021-04-11] MEDS ORDERED: MAGNESIUM SULFATE 1 GM/2 ML VIAL ONE ×2 (08:34→08:44)
[2021-04-11] MEDS ORDERED: DEXMEDETOMIDINE 200 MCG/2 ML VIAL ONE (08:34)
[2021-04-11] MEDS ORDERED: SCOPOLAMINE PATCH TOP ONE (08:37)
[2021-04-11] MEDS ORDERED: KETOROLAC 30 MG/ML VIAL ONE (08:44)
[2021-04-11] MEDS ORDERED: SODIUM CHLORIDE 0.9% 10 ML VIAL IVP ONE (08:50)
[2021-04-11] MEDS ORDERED: LACTATED RINGERS 1,000 ML IV SCH ×4 (09:00→22:00)
[2021-04-11] MEDS ORDERED: SCOPOLAMINE PATCH TOP SCH (09:00)
[2021-04-11] MEDS: KETOROLAC 15 MG/ML VIAL IVP PRN ×2 (09:30→18:45)
[2021-04-11] MEDS ORDERED: ePHEDrine 50 MG/ML VIAL IVP ONE (09:58)
[2021-04-11] MEDS ORDERED: LIDOCAINE 2%-EPI 1:100000 20 ML MDV SUBQ ONE ×2 (11:15)
[2021-04-11] MEDS ORDERED: BUPIVACAINE 0.5% PF 30 ML VIAL INFIL ONE ×2 (11:15)
[2021-04-11] MEDS ORDERED: SUGAMMADEX 200 MG/2 ML VIAL IVP ONE (13:00)
--- NOTE | 2021-04-11 13:35 | OPERATIVE REPORT ---
Operative Report - General Procedure Date: 04/11/21 Planned Procedure: Total laparoscopic hysterectomy with bilateral salpingectomy and cystoscopy Pre-Op Diagnosis: Menorrhagia dysmenorrhea suspected adenomyosis Procedure Performed: Total laparoscopic hysterectomy to nh with bilateral salpingectomy and cystoscopy Post Op Diagnosis: Same - Procedure Note Primary Surgeon: Manjinder Dunlap MD Secondary Surgeon: Lia Cox MD Anesthesia Provider: Anderson Tatum CRNA Pathology: Uterus and tubes IV Fluids (mL): 1,700 Estimated Blood Loss (mL): 100 Urine Output (mL): 375 Findings: Mildly enlarged uterus small amount of adhesions on the left adnexa. Complications: Sutures closing the vagina were noted in the bladder these were removed and the vagina was closed the second time repeat cystoscopy did not show evidence of any sutures - Other Other Information/Narrative: Patient was taken to the operating room at which time general anesthesia was obtained via endotracheal tube. She was prepped she was placed in the dorsolithotomy position in [facility]. Pelvic examination revealed cervix which was high in the vagina the uterus palpated roughly 8 to 10 cm. At this point she was prepped and draped in the usual fashion. A timeout was performed which concerns were addressed. A speculum was placed in the vagina cervix visu alized grasped with a single-tooth tenaculum posteriorly. The cervix and uterus was dilated up progressively to 7 mm there was some difficulty with the dilatation secondary to the fact that she had an endometrial ablation. A 3.5 cm lookback coordinator uterine manipulator is placed in the cervix without difficulty following this the flexo press operator's gloves were changed. A vertical incision was made in the subumbilical area following this a 5 mm trocar and sheath were placed without difficulty. Care was taken assure this was in the abdominal cavity there is no evidence of any injury to the bowel. 2 additional ports were placed both in the left and right mid quadrants. These were done following local anesthesia with quarter percent Marcaine with epinephrine and a skin incision with a #11 blade. The pelvic contents were then visualized there is evidence of adhesions around the left ovary. Because approximately the bowel care was taken not to take these down to avoid injury to the colon. The right fallopian tube was grasped and then the utilizing the LigaSure the mesosalpinx was cauterized and transected. The distal portion of the tube was brought through the 5 mm port and then the additional applications of the LigaSure to include the utero- ovarian ligament as well as the round ligament were utilized to cauterize and transect these structures. The anterior leaf of the broad ligament ligament was then opened and carried across the lower uterine segment there was evidence of adhesions from her previous section. These were taken down both bluntly and sharply care was taken to stay as close to the uterus was possible to minimize the risk of injury to the bladder. The uterine vessels on the right-hand side were doubly cauterized but not transected. At this point the left fallopian tube mesosalpinx was cauterized and transected with the LigaSure the distal portion were brought through the 5 mm port and following this the utero-ovarian ligament was doubly cauterized and transected the round ligament was doubly cauterized and transected. The anterior leaf of the broad ligament was opened utilizing the LigaSure and this was carried down to the internal os of the cervix. The posterior leaf of the broad ligament was likewise cauterized and transected. Prior to this dissection care was taken to identify the ureters on both sides. The bladder was then pushed down off the lower uterine segment and cervix. The uterine vessels were likewise cauterized and transected on both sides utilizing the LigaSure. Care is to sure there is evidence of good hemostasis. At this point harmonic scalpel was used to open the vagina anterior this is carried down to the angle of the lookback coordinator. The cervix was then amputated from the apex of vagina utilizing the harmonic scalpel good hemostasis was observed at this time. The uterus was then brought down through the cervix and out through the vagina. A bulb was then placed in vagina to maintain pneumoperitoneum. [place] vagina was closed utilizing V-Loc suture to close the the vagina. Care was taken to not go too far lateral to avoid injury to the ureters. Following this a cystoscopy was performed and there is evidence of 2 sutures in the bladder. Attempt was utilized to cut these with a urologic scissors but this was unsuccessful. Following this the abdomen was reinsufflated and the V-Loc suture was taken out in its entirety. This was then reclosed utilizing another V-Loc suture care was taken to try and avoid any perforations to the bladder. Following this a cystoscopy was performed and there was no evidence of any sutures in the bladder there was evidence of good flow through both ureteral orifice ease. There was some pneumatic leak through the vagina however this is acceptable considering the concerns about not injuring the bladder. The incisions were closed with 4-0 Monocryl subcuticular then tincture of sorry then Dermabond was used to close the sutures. Throughout this procedure Dr. Cox was instrumental with retraction operation of the LigaSure on the left-hand side as well as retraction and camera manipulation. Sponge and needle counts were correct.
--- NOTE | 2021-04-11 13:45 | ANESTHESIA POST OP EVALUATION ---
Anesthesia Post Eval - Post Anesthesia Eval Vitals: Last Vital Signs Temp 36.6 C 04/11/21 13:25 Pulse 69 04/11/21 13:25 Resp 14 04/11/21 13:25 BP 97/60 04/11/21 13:25 Pulse Ox 97 04/11/21 13:25 CV Function Including HR & BP: Stable Pain Control: Satisfactory Nausea & Vomiting: Negative Mental Status: Baseline Respiratory Status: Airway Patent Hydration Status: Satisfactory Anesthesia Complications: None
[2021-04-11] MEDS ORDERED: ceFAZolin 1 GM in SODIUM CHLORIDE 0.9% MINIBAG 100 ML IV ONE (16:00)
[2021-04-11] MEDS ORDERED: LACTATED RINGERS 500 ML IV ONE (16:30)
[2021-04-11] MEDS: PHENAZOPYRIDINE 100 MG TABLET PO SCH (18:45)
[2021-04-12] MEDS: KETOROLAC 15 MG/ML VIAL IVP PRN ×2 (00:56→07:37)
[2021-04-12] MEDS: PHENAZOPYRIDINE 100 MG TABLET PO SCH ×2 (00:57→07:36)
[2021-04-12 07:11] LABS: BASOPHILS % (AUTO) 0.2 %; EOSINOPHILS % (AUTO) 0.1 %; HCT - HEMATOCRIT 31.9 % (37.0-47.0); HGB - HEMOGLOBIN 11.2 g/dL (12.0-16.0); LYMPHOCYTES # (AUTO) 1.5 10^3/uL (1.5-3.5); LYMPHOCYTES % (AUTO) 17.6 %; MEAN CORPUSCULAR HEMOGLOBIN 31.5 pg (27.0-31.0); MEAN CORPUSCULAR HGB CONC 35.1 g/dL (32.0-36.0); MEAN CORPUSCULAR VOLUME 89.9 fL (81.0-99.0); MEAN PLATELET VOLUME 10.1 fL (7.9-10.8); MONOCYTES # (AUTO) 0.6 10^3/uL (0.0-1.0); MONOCYTES % (AUTO) 6.6 %; NEUTROPHILS # (AUTO) 6.2 10^3/uL (1.5-6.6); NEUTROPHILS % (AUTO) 74.8 %; PLT - PLATELET COUNT 218 10^3/uL (130-450); RED BLOOD COUNT 3.55 10^6/uL (4.20-5.40); RED CELL DISTRIBUTION WIDTH 12.9 % (12.0-15.0); WHITE BLOOD COUNT 8.3 x10^3/uL (4.8-10.8)
[2021-04-12 07:12] LABS: CALCIUM 8.3 mg/dL (8.5-10.3); CREATININE 0.7 mg/dL (0.4-1.0); POTASSIUM 3.8 mmol/L (3.5-5.0)
[2021-04-12 08:08] VITALS: BP 94/51
--- NOTE | 2021-04-12 08:52 | PROVIDER PROGRESS NOTE ---
Subjective - General Procedure Date: 04/11/21 Post Op Days: 1 Procedure Performed: TLH with BS adn cysto - Review of Systems Wound/Incisions: positive: Healing well, Dressing dry and intact General: positive: No symptoms (Pain 3/10 looks like 5/10. not taking any narcotics.) Pulmonary: positive: No symptoms Cardiovascular: positive: No symptoms Gastrointestinal: negative: Nausea Objective - Patient Data Reviewed Vital Signs: Yes Vital Signs: Vital Signs x48h Temp Pulse Resp BP Pulse Ox 04/12/21 07:45 37.1 C 69 16 94/51 L 100 04/12/21 05:00 60 16 93/51 L 99 04/12/21 03:10 36.5 C 68 16 105/58 L 98 04/12/21 01:04 58 L 16 92/56 L 99 Weight: Weight 04/10/21 04/11/21 04/12/21 23:59 23:59 23:59 Weight (kg) 49 kg Intake & Output: Intake and Output Totals x24h 04/10/21 04/11/21 04/12/21 23:59 23:59 23:59 Intake Total 2450 1100 Output Total 2230 1250 Balance 220 -150 - Lab Results Lab Results: 04/12/21 06:55 04/12/21 06:55 Other Lab Results: Lab Results x24hrs 04/12/21 04/12/21 04/11/21 Range/Units 06:55 06:55 08:59 WBC 8.3 (4.8-10.8) x10^3/uL RBC 3.55 L (4.20-5.40) 10^6/uL Hgb 11.2 L (12.0-16.0) g/dL Hct 31.9 L (37.0-47.0) % MCV 89.9 (81.0-99.0) fL MCH 31.5 H (27.0-31.0) pg MCHC 35.1 (32.0-36.0) g/dL RDW 12.9 (12.0-15.0) % Plt Count 218 (130-450) 10^3/uL MPV 10.1 (7.9-10.8) fL Neut # (Auto) 6.2 (1.5-6.6) 10^3/uL Lymph # (Auto) 1.5 (1.5-3.5) 10^3/uL [place] # (Auto) 0.6 (0.0-1.0) 10^3/uL Eos # (Auto) 0.0 (0.0-0.7) 10^3/uL Baso # (Auto) 0.0 (0.0-0.1) 10^3/uL Absolute Nucleated RBC 0.00 x10^3/uL Nucleated RBC % 0.0 /100WBC Sodium 140 (135-145) mmol/L Potassium 3.8 (3.5-5.0) mmol/L Chloride 112 H (101-111) mmol/L Carbon Dioxide 22 (21-32) mmol/L Anion Gap 6.0 (6-13) BUN 10 (6-20) mg/dL Creatinine 0.7 (0.4-1.0) mg/dL Estimated GFR (MDRD) 90 (>89) Glucose 94 (70-100) mg/dL POC Whole Bld Glucose 74 (70 - 100) mg/dL Calcium 8.3 L (8.5-10.3) mg/dL - Current Medications Current Medications: Current Medications Generic Name Dose Route Start Last Admin Trade Name Freq PRN Reason Stop Dose Admin Fentanyl 25 mcg 04/11/21 13:25 04/12/21 03:03 Fentanyl 100 Mcg/2 Ml Vial IVP 25 mcg Q2HR PRN Administration PAIN Lactated Ringer's 1,000 mls @ 50 mls/hr 04/11/21 22:00 04/11/21 22:15 Lr IV 50 mls/hr .Q20H ROCIO Administration Ketorolac Tromethamine 15 mg 04/11/21 13:19 04/12/21 07:37 Ketorolac 15 Mg/Ml Vial IVP 04/16/21 13:18 15 mg Q6HR PRN Administration PAIN Ondansetron HCl 4 mg 04/11/21 13:18 04/11/21 17:00 Ondansetron 4 Mg/2 Ml Vial IVP 4 mg Q6HR PRN Administration Nausea / Vomiting Phenazopyridine HCl 100 mg 04/11/21 17:00 04/12/21 07:36 Phenazopyridine 100 Mg Tablet PO 100 mg TIDWM ROCIO Administration Scopolamine HBr 1 patch 04/11/21 09:00 04/11/21 17:30 Scopolamine Patch TOP Not Given Q3D ROCIO - Physical Exam General Appearance: positive: Alert, Mild distress Respiratory: positive: Chest non-tender, No respiratory distress, Breath sounds nml Cardiovascular: positive: Regular rate & rhythm, No murmur, No gallop Abdomen: positive: Non-tender Back: negative: CVA tenderness (R), CVA tenderness (L) Extremities: negative: Calf tenderness, Mahendra's sign/cords Neurologic/Psychiatric: positive: Oriented x3 Impression/Plan - Problem List Problem List: [facility] [place] reviewed temp, pain, bleeding discharge medications Motrin 600 mg colace 100 mg Pt declines any narcotics. RTC 1 week
--- NOTE | 2021-04-12 08:55 | Discharge Plan ---
Discharge Plan Problem Reviewed?: Yes Disposition: Home, Self Care Condition: Good Diet: Regular Shower Restrictions: No Weight Bearing: Full Weight No Smoking: If you smoke, Please STOP! Call for help. Follow-up with: HOPE GAN, MSN, SALES REPRESENTATIVE [employer] [Primary Care Provider] -
== END 2021-04-12 10:00 | disposition home or self-care (01) ==
LOC: SDS 07:09 → FBP 14:24 → SDS 04-12 10:00
PROVIDERS: ATTEND Obstetrics & Gynecology
PROC: 0UT74ZZ Resection of Bilateral Fallopian Tubes, Percutaneous Endoscopic Approach (ICD-10-PCS; 2021-04-11)
PROC: 0UT94ZZ Resection of Uterus, Percutaneous Endoscopic Approach (ICD-10-PCS; principal; 2021-04-11 08:30)
DX: N92.0 Excessive and frequent menstruation with regular cycle (principal); N94.6 Dysmenorrhea, unspecified; D25.1 Intramural leiomyoma of uterus
CPT/HCPCS: 36415; 58571; 80048; 85025; A9270; J0131; J0690; J1200; J3490; J7120

== ENCOUNTER 2021-04-13 12:01 | Emergency (ER) | payer OTHER ==
[2021-04-13 13:31] LABS: BASOPHILS % (AUTO) 0.5 %; EOSINOPHILS # (AUTO) 0.2 10^3/uL (0.0-0.7); EOSINOPHILS % (AUTO) 2.9 %; HGB - HEMOGLOBIN 12.9 g/dL (12.0-16.0); LYMPHOCYTES # (AUTO) 1.4 10^3/uL (1.5-3.5); LYMPHOCYTES % (AUTO) 22.1 %; MEAN CORPUSCULAR HEMOGLOBIN 31.1 pg (27.0-31.0); MEAN CORPUSCULAR HGB CONC 33.1 g/dL (32.0-36.0); MEAN PLATELET VOLUME 9.9 fL (7.9-10.8); MONOCYTES # (AUTO) 0.3 10^3/uL (0.0-1.0); MONOCYTES % (AUTO) 5.3 %; NEUTROPHILS # (AUTO) 4.3 10^3/uL (1.5-6.6); NEUTROPHILS % (AUTO) 68.9 %; PLT - PLATELET COUNT 241 10^3/uL (130-450); RED BLOOD COUNT 4.15 10^6/uL (4.20-5.40); RED CELL DISTRIBUTION WIDTH 13.3 % (12.0-15.0); WHITE BLOOD COUNT 6.3 x10^3/uL (4.8-10.8)
[2021-04-13 13:36] LABS: INR 1.2 (0.8-1.2); PT - PROTHROMBIN TIME 12.9 secs (9.9-12.6)
[2021-04-13 13:45] LABS: ALBUMIN 3.5 g/dL (3.2-5.5); ALBUMIN/GLOBULIN RATIO 1.2 (1.0-2.2); BILIRUBIN,TOTAL 0.5 mg/dL (0.2-1.0); CREATININE 0.7 mg/dL (0.4-1.0); POTASSIUM 4.1 mmol/L (3.5-5.0); TOTAL PROTEIN 6.4 g/dL (6.7-8.2)
[2021-04-13 14:07] LABS: BILIRUBIN,URINE NEGATIVE (NEGATIVE); GLUCOSE, URINE (UA) NEGATIVE (NEGATIVE); KETONES,URINE (UA) NEGATIVE (NEGATIVE); LEUKOCYTE ESTERASE, URINE NEGATIVE (NEGATIVE); NITRITE,URINE NEGATIVE (NEGATIVE); OCCULT BLOOD,URINE SMALL (NEGATIVE); PROTEIN,URINE NEGATIVE (NEGATIVE); UROBILINOGEN,URINE 0.2 (NORMAL) E.U./dL (NORMAL)
[2021-04-13 14:09] LABS: CLARITY,URINE CLEAR (CLEAR)
[2021-04-13 14:30] LABS: BACTERIA,URINE Rare /HPF (None Seen); RBC,URINE 0-5 /HPF (0-5); SQUAMOUS EPITHELIAL CELL,UR MANY Squamous (<= Few); WBC,URINE 0-3 /HPF (0-5)
[2021-04-13 15:17] VITALS: BP 114/72
--- NOTE | 2021-04-13 15:28 | ED Physician Documentation ---
History of Present Illness - Stated complaint Stated Complaint: BLURRY VISION - Chief complaint Chief Complaint: General - History obtained from History obtained from: Patient - Additonal information Additional information: 2 days out from a laparoscopic assisted hysterectomy. Released from the hospital yesterday and her friend noticed that her eyes were yellow yesterday although that seems resolved today. But she has persistent facial swelling and hand swelling and blurry vision. Review of Systems Constitutional: denies: Fever, Chills Eyes: denies: Loss of vision, Decreased vision Ears: denies: Loss of hearing, Ear pain Nose: denies: Rhinorrhea / runny nose, Congestion PD PAST MEDICAL HISTORY - Past Medical History Cardiovascular: None Respiratory: None Neuro: Migraines, Other (Menieres disease) Endocrine/Autoimmune: None GI: None FACILITY EXAMINER: Other : Other HEENT: Chronic vision loss Psych: Depression Musculoskeletal: None Derm: None - Past Surgical History Past Surgical History: Yes /FACILITY EXAMINER: section, Endometrial ablation - Present Medications Home Medications: Ambulatory Orders Medication Instructions Recorded Confirmed hydrOXYzine PAMOATE [Vistaril] 25 - 50 mg PO QPM 01/23/17 04/11/21 Loratadine [Claritin] 10 mg PO DAILY 04/06/21 04/11/21 Norethindrone [Ortho Micronor] 0.35 mg PO DAILY 04/06/21 04/11/21 Valacyclovir HCl [Valtrex] 1 gm PO BID PRN 04/06/21 04/11/21 - Allergies Allergies/Adverse Reactions: Allergies Allergy/AdvReac Type Severity Reaction Status Date / Time azithromycin Allergy Unknown Verified 04/13/21 12:30 codeine Allergy Unknown Verified 04/13/21 12:30 cyclobenzaprine HCl * Allergy Unknown Verified 04/13/21 12:30 [From Flexeril] hydrocodone bitartrate * Allergy Unknown Verified 04/13/21 12:30 [From Vicodin] meperidine HCl * Allergy Unknown Verified 04/13/21 12:30 [From Demerol] opium tincture Allergy Unknown Verified 04/13/21 12:30 promethazine HCl * Allergy psychotic Verified 04/13/21 12:30 [From Phenergan] - Social History Does the pt smoke?: No Smoking Status: Never smoker Does the pt drink ETOH?: No Does the pt have substance abuse?: No PD ED PE NORMAL - Vitals Vital signs reviewed: Yes - General General: Alert and oriented X 3, No acute distress - HEENT HEENT: PERRL, EOMI, Other (She is anicteric, she has mild facial edema, visual acuity 20/50 bilaterally.) - Neck Neck: Supple, no meningeal sign, No bony TTP - Extremities Extremities: No edema, No calf tenderness / cord - Neuro Neuro: Alert and oriented X 3, Normal speech Results - Vitals Vitals: Vital Signs - 24 hr 04/13/21 04/13/21 12:22 15:16 Temperature 36.6 C 36.6 C Heart Rate 65 60 Respiratory 18 16 Rate Blood Pressure 102/47 L 114/72 O2 Saturation 99 100 Oxygen O2 Source Room air - Labs Labs: Laboratory Tests 04/13/21 04/13/21 04/13/21 13:25 13:25 13:25 WBC 6.3 RBC 4.15 L Hgb 12.9 Hct 39.0 MCV 94.0 MCH 31.1 H MCHC 33.1 RDW 13.3 Plt Count 241 MPV 9.9 Neut # (Auto) 4.3 Lymph # (Auto) 1.4 L [place] # (Auto) 0.3 Eos # (Auto) 0.2 Baso # (Auto) 0.0 Absolute Nucleated RBC 0.00 Nucleated RBC % 0.0 PT 12.9 H INR 1.2 Sodium 141 Potassium 4.1 Chloride 108 Carbon Dioxide 28 Anion Gap 5.0 L BUN 12 Creatinine 0.7 Estimated GFR (MDRD) 90 Glucose 95 Calcium 9.0 Total Bilirubin 0.5 AST 28 ALT 37 Alkaline Phosphatase 62 Total Protein 6.4 L Albumin 3.5 Globulin 2.9 Albumin/Globulin Ratio 1.2 Lipase 31 Urine Color Urine Clarity Urine pH Ur Specific [place] Urine Protein Urine Glucose (UA) Urine Ketones Urine Occult Blood Urine Nitrite Urine Bilirubin Urine Urobilinogen Ur Leukocyte Esterase Urine RBC Urine WBC Ur Squamous Epith Cells Urine Bacteria Ur Microscopic Review Urine Culture Comments 04/13/21 13:48 WBC RBC Hgb Hct MCV MCH MCHC RDW Plt Count MPV Neut # (Auto) Lymph # (Auto) [place] # (Auto) Eos # (Auto) Baso # (Auto) Absolute Nucleated RBC Nucleated RBC % PT INR Sodium Potassium Chloride Carbon Dioxide Anion Gap BUN Creatinine Estimated GFR (MDRD) Glucose Calcium Total Bilirubin AST ALT Alkaline Phosphatase Total Protein Albumin Globulin Albumin/Globulin Ratio Lipase Urine Color YELLOW Urine Clarity CLEAR Urine pH 8.0 H Ur Specific [place] 1.020 Urine Protein NEGATIVE Urine Glucose (UA) NEGATIVE Urine Ketones NEGATIVE Urine Occult Blood SMALL H Urine Nitrite NEGATIVE Urine Bilirubin NEGATIVE Urine Urobilinogen 0.2 (NORMAL) Ur Leukocyte Esterase NEGATIVE Urine RBC 0-5 Urine WBC 0-3 Ur Squamous Epith Cells MANY Squamous H Urine Bacteria Rare Ur Microscopic Review INDICATED Urine Culture Comments NOT INDICATED PD MEDICAL DECISION MAKING - ED course ED course: Benign exam with mild facial edema, I suspect this is due to being in Trendelenburg position for the surgery. Blurry vision may be a side effect of anesthetic, follow-up advised if not quickly resolved. Departure - Departure Disposition: 01 Home, Self Care Clinical Impression: Facial edema, Blurry vision, bilateral Condition: Good Record reviewed to determine appropriate education?: Yes Follow-Up: Grey Sun MD [Provider Admit Priv/Credential] - Comments: As discussed, I suspect the facial edema is due to IV fluids and being in what is called Trendelenburg certain position for the surgery. The blurry vision may be a side effect of anesthetic. I suspect all this will go away quickly with time, but do recommend you follow-up with the eye doctor early next week if not improved. Return for new or worsening symptoms. Walk as much as possible.
== END 2021-04-13 15:40 | disposition home or self-care (01) ==
LOC: ED 12:01
DX: H53.8 Other visual disturbances (principal); R60.0 Localized edema; Z98.890 Other specified postprocedural states
CPT/HCPCS: 36415; 80053; 81001; 81003; 83690; 85025; 85610; 87086; 99283; 99284

== ENCOUNTER 2021-04-26 08:00 | Outpatient (CLI) | payer OTHER | END 2021-04-26 23:59 | disposition home or self-care (01) | LOC: LAB.WC 08:00 | PROVIDERS: ATTEND Obstetrics & Gynecology | DX: N39.0 Urinary tract infection, site not specified (principal) | CPT/HCPCS: 87086 ==

== ENCOUNTER 2021-05-23 08:00 | Outpatient (CLI) | payer OTHER ==
[2021-05-23 15:44] LABS: BILIRUBIN,URINE NEGATIVE (NEGATIVE); GLUCOSE, URINE (UA) NEGATIVE (NEGATIVE); KETONES,URINE (UA) NEGATIVE (NEGATIVE); LEUKOCYTE ESTERASE, URINE NEGATIVE (NEGATIVE); NITRITE,URINE NEGATIVE (NEGATIVE); OCCULT BLOOD,URINE NEGATIVE (NEGATIVE); PROTEIN,URINE NEGATIVE (NEGATIVE); UROBILINOGEN,URINE 0.2 (NORMAL) E.U./dL (NORMAL)
[2021-05-23 15:45] LABS: CLARITY,URINE CLEAR (CLEAR)
== END 2021-05-23 23:59 | disposition home or self-care (01) ==
LOC: LAB.WC 08:00
PROVIDERS: ATTEND Obstetrics & Gynecology
DX: N39.0 Urinary tract infection, site not specified (principal)
CPT/HCPCS: 81001; 81003; 87086

== ENCOUNTER 2021-06-08 08:00 | Outpatient (CLI) | payer OTHER ==
[2021-06-08 11:42] LABS: BASOPHILS % (AUTO) 0.4 %; EOSINOPHILS # (AUTO) 0.2 10^3/uL (0.0-0.7); EOSINOPHILS % (AUTO) 2.9 %; HCT - HEMATOCRIT 45.5 % (37.0-47.0); LYMPHOCYTES # (AUTO) 1.4 10^3/uL (1.5-3.5); LYMPHOCYTES % (AUTO) 27.6 %; MEAN CORPUSCULAR HEMOGLOBIN 29.9 pg (27.0-31.0); MEAN CORPUSCULAR VOLUME 90.8 fL (81.0-99.0); MONOCYTES # (AUTO) 0.3 10^3/uL (0.0-1.0); MONOCYTES % (AUTO) 5.3 %; NEUTROPHILS # (AUTO) 3.3 10^3/uL (1.5-6.6); NEUTROPHILS % (AUTO) 63.6 %; PLT - PLATELET COUNT 301 10^3/uL (130-450); RED BLOOD COUNT 5.01 10^6/uL (4.20-5.40); RED CELL DISTRIBUTION WIDTH 12.6 % (12.0-15.0); WHITE BLOOD COUNT 5.1 x10^3/uL (4.8-10.8)
[2021-06-08 12:05] LABS: BILIRUBIN,URINE NEGATIVE (NEGATIVE); GLUCOSE, URINE (UA) NEGATIVE (NEGATIVE); KETONES,URINE (UA) NEGATIVE (NEGATIVE); LEUKOCYTE ESTERASE, URINE MODERATE (NEGATIVE); NITRITE,URINE NEGATIVE (NEGATIVE); OCCULT BLOOD,URINE SMALL (NEGATIVE); PROTEIN,URINE NEGATIVE (NEGATIVE); UROBILINOGEN,URINE 0.2 (NORMAL) E.U./dL (NORMAL)
[2021-06-08 12:16] LABS: BACTERIA,URINE Few /HPF (None Seen); CLARITY,URINE SL. CLOUDY (CLEAR); SQUAMOUS EPITHELIAL CELL,UR MOD Squamous (<= Few)
[2021-06-08 12:34] LABS: ALBUMIN 4.5 g/dL (3.2-5.5); ALBUMIN/GLOBULIN RATIO 1.4 (1.0-2.2); ALKALINE PHOSPHATASE 100 IU/L (42-121); ALT ALANINE AMINOTRANSFERASE 34 IU/L (10-60); AST ASPARTATE AMINOTRANSFERASE 20 IU/L (10-42); BILIRUBIN,TOTAL 0.8 mg/dL (0.2-1.0); BUN - BLOOD UREA NITROGEN 23 mg/dL (6-20); CALCIUM 9.9 mg/dL (8.5-10.3); CARBON DIOXIDE - CO2 27 mmol/L (21-32); CHLORIDE 105 mmol/L (101-111); CHOL/HDL RATIO 2.7 (<4.4); CHOLESTEROL 288 mg/dL; GFR - MDRD 60 (>89); GLUCOSE 96 mg/dL (70-100); HDL CHOLESTEROL 107 mg/dL; LDL CHOLESTEROL,CALCULATED 165 mg/dL; LDL/HDL RATIO 1.5 (<4.4); POTASSIUM 4.1 mmol/L (3.5-5.0); SODIUM 142 mmol/L (135-145); TOTAL PROTEIN 7.8 g/dL (6.7-8.2); TRIGLYCERIDES 78 mg/dL; VLDL CHOLESTEROL 16 mg/dL
[2021-06-08 12:37] LABS: THYROID STIMULATING HORMONE 2.29 uIU/mL (0.34-5.60)
== END 2021-06-08 23:59 | disposition home or self-care (01) ==
LOC: LAB.WCP 08:00
PROVIDERS: ATTEND Nurse Practitioner
DX: R53.83 Other fatigue (principal); Z13.220 Encounter for screening for lipoid disorders
CPT/HCPCS: 36415; 80053; 80061; 81001; 83721; 84443; 85025; 87086

== ENCOUNTER 2021-06-21 08:00 | Outpatient (CLI) | payer OTHER ==
[2021-06-21 19:04] LABS: BILIRUBIN,URINE NEGATIVE (NEGATIVE); GLUCOSE, URINE (UA) NEGATIVE (NEGATIVE); KETONES,URINE (UA) NEGATIVE (NEGATIVE); LEUKOCYTE ESTERASE, URINE SMALL (NEGATIVE); NITRITE,URINE NEGATIVE (NEGATIVE); OCCULT BLOOD,URINE NEGATIVE (NEGATIVE); PROTEIN,URINE NEGATIVE (NEGATIVE); UROBILINOGEN,URINE 0.2 (NORMAL) E.U./dL (NORMAL)
[2021-06-21 19:12] LABS: CLARITY,URINE CLEAR (CLEAR)
[2021-06-21 21:13] LABS: BACTERIA,URINE Few /HPF (None Seen); RBC,URINE None Seen /HPF (0-5); SQUAMOUS EPITHELIAL CELL,UR FEW Squamous (<= Few)
[2021-06-21 21:14] LABS: AMORPHOUS SEDIMENT,UR Rare /LPF
== END 2021-06-21 23:59 | disposition home or self-care (01) ==
LOC: LAB.WCP 08:00
PROVIDERS: ATTEND Nurse Practitioner
DX: N30.10 Interstitial cystitis (chronic) without hematuria (principal)
CPT/HCPCS: 81001; 87086

== ENCOUNTER 2021-06-28 18:39 | Outpatient (CLI) | payer OTHER ==
[2021-06-28 18:50] LABS: BILIRUBIN,URINE NEGATIVE (NEGATIVE); GLUCOSE, URINE (UA) NEGATIVE (NEGATIVE); KETONES,URINE (UA) NEGATIVE (NEGATIVE); LEUKOCYTE ESTERASE, URINE SMALL (NEGATIVE); NITRITE,URINE NEGATIVE (NEGATIVE); OCCULT BLOOD,URINE NEGATIVE (NEGATIVE); PROTEIN,URINE NEGATIVE (NEGATIVE); UROBILINOGEN,URINE 0.2 (NORMAL) E.U./dL (NORMAL)
[2021-06-28 18:51] LABS: CLARITY,URINE CLEAR (CLEAR)
[2021-06-28 18:55] LABS: BACTERIA,URINE Rare /HPF (None Seen); RBC,URINE 0-5 /HPF (0-5); SQUAMOUS EPITHELIAL CELL,UR MOD Squamous (<= Few)
== END 2021-06-28 18:40 | disposition home or self-care (01) ==
LOC: LAB 18:39
PROVIDERS: ATTEND Obstetrics & Gynecology
DX: N30.10 Interstitial cystitis (chronic) without hematuria (principal)
CPT/HCPCS: 81001; 87086

== ENCOUNTER 2021-08-30 20:46 | Emergency (ER) | payer OTHER ==
[2021-08-30 21:14] LABS: BASOPHILS % (AUTO) 0.3 %; EOSINOPHILS # (AUTO) 0.1 10^3/uL (0.0-0.7); EOSINOPHILS % (AUTO) 1.5 %; HCT - HEMATOCRIT 42.4 % (37.0-47.0); HGB - HEMOGLOBIN 14.8 g/dL (12.0-16.0); LYMPHOCYTES # (AUTO) 1.8 10^3/uL (1.5-3.5); LYMPHOCYTES % (AUTO) 19.1 %; MEAN CORPUSCULAR HEMOGLOBIN 31.1 pg (27.0-31.0); MEAN CORPUSCULAR HGB CONC 34.9 g/dL (32.0-36.0); MEAN CORPUSCULAR VOLUME 89.1 fL (81.0-99.0); MEAN PLATELET VOLUME 9.7 fL (7.9-10.8); MONOCYTES # (AUTO) 0.4 10^3/uL (0.0-1.0); MONOCYTES % (AUTO) 4.3 %; NEUTROPHILS # (AUTO) 7.2 10^3/uL (1.5-6.6); NEUTROPHILS % (AUTO) 74.5 %; PLT - PLATELET COUNT 280 10^3/uL (130-450); RED BLOOD COUNT 4.76 10^6/uL (4.20-5.40); RED CELL DISTRIBUTION WIDTH 13.5 % (12.0-15.0); WHITE BLOOD COUNT 9.6 x10^3/uL (4.8-10.8)
--- NOTE | 2021-08-30 21:23 | ED Physician Documentation ---
PD HPI HEENT - Stated complaint Stated Complaint: DIZZY,N/V,SYNCOPE - Chief complaint Chief Complaint: Neuro - History obtained from History obtained from: Patient - History of Present Illness Timing - onset: Today Timing - details: Abrupt onset, Still present Location: Other (onset of migraine type headache associaterd with nausea and vertigo with head movement. Has had vertigo at times in the past, and has triggered migraines. Seen in ER for similar months ago with normal CT head and improved symptoms targeted at migraine therapy.) Associated symptoms: Headache, Other (no head injury. No focal weaknesses.). No: Fever Similar symptoms before: Diagnosis (vertigo with triggered migraine versus c omplex migraine.) Review of Systems Constitutional: denies: Fever, Chills Eyes: reports: Photophobia Ears: denies: Loss of hearing, Ear pain, Tinnitus/ringing Nose: denies: Rhinorrhea / runny nose, Congestion Throat: denies: Sore throat Cardiac: denies: Chest pain / pressure Respiratory: denies: Cough GI: reports: Nausea, Vomiting. denies: Abdominal Pain Skin: denies: Rash, Lesions Neurologic: reports: Generalized weakness, Headache. 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 HEENT: Chronic vision loss Psych: Depression Musculoskeletal: None Derm: None - Past Surgical History Past Surgical History: Yes /WELDING SUPERVISOR: section, Endometrial ablation, Hysterectomy - Present Medications Home Medications: Ambulatory Orders Medication Instructions Recorded Confirmed hydrOXYzine PAMOATE [Vistaril] 25 - 50 mg PO QPM 01/23/17 04/11/21 Loratadine [Claritin] 10 mg PO DAILY 04/06/21 04/11/21 Norethindrone [Ortho Micronor] 0.35 mg PO DAILY 04/06/21 04/11/21 Valacyclovir HCl [Valtrex] 1 gm PO BID PRN 04/06/21 04/11/21 Meclizine HCl [Motion Sickness] 25 mg PO Q6H PRN #30 tablet 08/31/21 Ondansetron Odt [Zofran] 4 mg TL Q6H PRN #20 tablet 08/31/21 dexAMETHasone [Decadron] 4 mg PO DAILY #5 tablet 08/31/21 - Allergies Allergies/Adverse Reactions: Allergies Allergy/AdvReac Type Severity Reaction Status Date / Time azithromycin Allergy Unknown Verified 08/30/21 20:56 codeine Allergy Unknown Verified 08/30/21 20:56 cyclobenzaprine HCl * Allergy Unknown Verified 08/30/21 20:56 [From Flexeril] hydrocodone bitartrate * Allergy Unknown Verified 08/30/21 20:56 [From Vicodin] meperidine HCl * Allergy Unknown Verified 08/30/21 20:56 [From Demerol] opium tincture Allergy Unknown Verified 08/30/21 20:56 promethazine HCl * Allergy psychotic Verified 08/30/21 20:56 [From Phenergan] - Social History Does the pt smoke?: No Smoking Status: Never smoker Does the pt drink ETOH?: No Does the pt have substance abuse?: No PD ED PE NORMAL - Vitals Vital signs reviewed: Yes - General General: Alert and oriented X 3, Well developed/nourished - HEENT HEENT: Atraumatic, PERRL, EOMI (with some nystagmus to the left. ), Pharynx benign - Neck Neck: Supple, no meningeal sign, No adenopathy - Cardiac Cardiac: RRR, No murmur - Respiratory Respiratory: Clear bilaterally - Abdomen Abdomen: Soft, Non tender - Derm Derm: Normal color, Warm and dry - Neuro Neuro: Alert and oriented X 3, No motor deficit, Normal speech Results - Vitals Vitals: Vital Signs - 24 hr 08/30/21 08/31/21 20:56 00:00 Temperature 36.5 C Heart Rate 81 75 Respiratory 20 Rate Blood Pressure 161/89 H 105/55 L O2 Saturation 100 98 Oxygen O2 Source Room air - Labs Labs: Laboratory Tests 08/30/21 08/30/21 08/30/21 20:50 20:50 20:50 WBC 9.6 RBC 4.76 Hgb 14.8 Hct 42.4 MCV 89.1 MCH 31.1 H MCHC 34.9 RDW 13.5 Plt Count 280 MPV 9.7 Neut # (Auto) 7.2 H Lymph # (Auto) 1.8 [place] # (Auto) 0.4 Eos # (Auto) 0.1 Baso # (Auto) 0.0 Absolute Nucleated RBC 0.00 Nucleated RBC % 0.0 Sodium 134 L Potassium 3.4 L Chloride 102 Carbon Dioxide 21 Anion Gap 11.0 BUN 18 Creatinine 0.6 Estimated GFR (MDRD) 108 Glucose 118 H POC Whole Bld Glucose Calcium 9.4 Total Bilirubin 0.4 AST 32 ALT 41 Alkaline Phosphatase 89 Troponin I High Sens 3.6 Total Protein 7.5 Albumin 4.2 Globulin 3.3 Albumin/Globulin Ratio 1.3 Lipase 32 08/30/21 21:05 WBC RBC Hgb Hct MCV MCH MCHC RDW Plt Count MPV Neut # (Auto) Lymph # (Auto) [place] # (Auto) Eos # (Auto) Baso # (Auto) Absolute Nucleated RBC Nucleated RBC % Sodium Potassium Chloride Carbon Dioxide Anion Gap BUN Creatinine Estimated GFR (MDRD) Glucose POC Whole Bld Glucose 137 H Calcium Total Bilirubin AST ALT Alkaline Phosphatase Troponin I High Sens Total Protein Albumin Globulin Albumin/Globulin Ratio Lipase PD MEDICAL DECISION MAKING - ED course Complexity details: re-evaluated patient (improved nausea and headache with toradol, inapsine, decadron. Vertiog improving. Took Meclizine. Declined Valium, which I discussed with her would commonly help vertigo well. ), considered differential, d/w patient Departure - Departure Disposition: Home, Self Care Clinical Impression: Positional vertigo Migraine Qualifiers: Migraine type: unspecified Status migrainosus presence: without status migrainosus Intractability: not intractable Qualified Code(s): G43.909 - Migraine, unspecified, not intractable, without status migrainosus Condition: Stable Record reviewed to determine appropriate education?: Yes Instructions: ED Headache Migraine, ED Vertigo Unspecified Follow-Up: Ludmila Calvillo MD [Primary Care Provider] - Prescriptions: dexAMETHasone [Decadron] 4 mg PO DAILY #5 tablet Meclizine HCl [Motion Sickness] 25 mg PO Q6H PRN #30 tablet PRN Reason: Vertigo Ondansetron Odt [Zofran] 4 mg TL Q6H PRN #20 tablet PRN Reason: Nausea / Vomiting Comments: Moves slowly for position change. Have head of bed elevated in the best position of comfort for your vertigo. I would anticipate improvement into tomorrow the next day. Use meclizine 1 to 2 tablets every 6-8 hours if needed for vertigo. Ondansetron if needed for nausea. Decadron steroid for inflammation of the inner ear to help with the vertigo. Take this daily for the next several days. I transmitted the prescriptions to [facility] which is the only one that will be open tomorrow. Tylenol or ibuprofen if needed for headaches. Discharge Date/Time: 08/31/21 01:40
[2021-08-30 21:25] LABS: ALBUMIN 4.2 g/dL (3.2-5.5); ALBUMIN/GLOBULIN RATIO 1.3 (1.0-2.2); BILIRUBIN,TOTAL 0.4 mg/dL (0.2-1.0); CALCIUM 9.4 mg/dL (8.5-10.3); CREATININE 0.6 mg/dL (0.4-1.0); POTASSIUM 3.4 mmol/L (3.5-5.0); TOTAL PROTEIN 7.5 g/dL (6.7-8.2)
[2021-08-30] MEDS ORDERED: KETOROLAC 15 MG/ML VIAL IVP STA (21:38)
[2021-08-30] MEDS ORDERED: DEXAMETHASONE 10 MG/ML VIAL IVP STA (21:38)
[2021-08-30] MEDS ORDERED: diazePAM INJ 5 MG/ML SYRINGE IVP STA ×2 (21:38→22:58)
[2021-08-30] MEDS ORDERED: DROPERIDOL 5 MG/2 ML VIAL IVP STA ×2 (21:38→23:43)
[2021-08-30] MEDS ORDERED: SODIUM CHLORIDE 0.9% 1,000 ML IV STA (21:38)
[2021-08-30] MEDS ORDERED: MECLIZINE 12.5 MG TABLET PO STA (22:58)
[2021-08-31 00:22] VITALS: BP 105/55
[2021-08-31] MEDS ORDERED: ONDANSETRON ODT 4 MG Prepack 2 TL PRN (00:38)
== END 2021-08-31 01:40 | disposition home or self-care (01) ==
LOC: ED 20:46
DX: G43.909 Migraine, unspecified, not intractable, without status migrainosus (principal); H81.10 Benign paroxysmal vertigo, unspecified ear
CPT/HCPCS: 36415; 80053; 83690; 84484; 85025; 93005; 96374; 96375; 96376; 99283; 99284; A9270

== ENCOUNTER 2021-09-10 14:57 | Outpatient (CLI) | payer OTHER ==
--- NOTE | 2021-09-11 12:57 | Mammography Report ---
BILATERAL DIGITAL SCREENING MAMMOGRAM 3D/2D WITH EXAGGERATED CC: 09/10/2021 CLINICAL: Family history of breast cancer. Comparison is made to exams dated: 07/21/2014 ultrasound and 07/21/2014 mammogram - [facility]. The tissue of both breasts is heterogeneously dense. This may lower the sensitivity of mammography. No significant masses, calcifications, or other findings are seen in either breast. There has been no significant interval change. IMPRESSION: NEGATIVE There is no mammographic evidence of malignancy. A 1 year screening mammogram is recommended. This exam was interpreted at Station ID: [id number]. NOTE: For mammograms, a report in lay terms will be sent to the patient. Approximately 15% of breast malignancies will not be visualized mammographically. In the management of a palpable breast mass, a negative mammogram must not discourage biopsy of a clinically suspicious lesion. Electronically Signed By: Raymond Gross M.D., jr/zach:09/11/2021 09:10:59 ACR BI-RADS Category 1: Negative 3341F PARENCHYMAL PATTERN: (D) - The breast(s) demonstrate(s) heterogeneously dense fibroglandular sammy chakraborty. BI-RADS CATEGORY: (1) - 1 RECOMMENDATION: (ANNUAL) - Recommend routine annual screening mammography. [id number] 1 year screening LATERALITY: (B)
== END 2021-09-10 14:58 | disposition home or self-care (01) ==
LOC: DI.S 14:57
PROVIDERS: ATTEND Nurse Practitioner
DX: Z12.31 Encounter for screening mammogram for malignant neoplasm of breast (principal); Z80.3 Family history of malignant neoplasm of breast

== ENCOUNTER 2022-01-26 15:44 | Emergency (ER) | payer OTHER ==
--- NOTE | 2022-01-26 15:57 | ED Physician Documentation ---
PD HPI Fall - Stated complaint Stated Complaint: FELL OFF LADDER/BODY PX - Chief complaint Chief Complaint: Trauma Hd/Nk - History obtained from History obtained from: Patient - History of Present Illness Mechanism of injury: Lost balance Fall distance: Less than 5ft (She was on a stepladder and leaned a bit and the ladder tipped. She fell from about 4 feet off the ground striking her right shoulder on a cross beam and then down onto her back with the ladder falling onto her legs.) Where injury occurred: Home Timing - onset: How many hours ago (6), Today (about 9 am) Injury(ies) location: Neck, Right Upper Extremity (shoulder), Right Lower Extremity (knee, which twisted as she fell and ladder fell onto it.) Quality of pain: Pain (hurting in neck, right shoulder and scapular area, right knee. Somewhat in lower back soft tissue, but not midline.), Aching Associated symptoms: No: LOC, AMS, Weakness, Paresthesias Symptoms improve with: Rest Worsens with: Movement (mainly pain in right shoulder with movement.) Similar symptoms before: Has not had sx before Recently seen: Not recently seen Review of Systems Constitutional: denies: Fever Nose: denies: Congestion Throat: denies: Sore throat Cardiac: denies: Chest pain / pressure Respiratory: denies: Cough GI: denies: Abdominal Pain, Nausea, Vomiting Musculoskeletal: reports: Neck pain (right trapezius area but to the upper midline), Back pain (right lower lumbar soft tissue) Neurologic: denies: Focal weakness, Numbness, Altered mental status, Headache PD PAST MEDICAL HISTORY - Past Medical History Cardiovascular: None Respiratory: None Neuro: Migraines, Other Endocrine/Autoimmune: None GI: None TWISTER IN: 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 : Other HEENT: Chronic vision loss Psych: Depression Musculoskeletal: None Derm: None - Past Surgical History Past Surgical History: Yes /TWISTER IN: section, Endometrial ablation, Hysterectomy - Present Medications Home Medications: Ambulatory Orders Medication Instructions Recorded Confirmed Norethindrone [Ortho Micronor] 0.35 mg PO DAILY 04/06/21 04/11/21 Fexofenadine [Sally] 01/26/22 Meclizine HCl [Motion Sickness] 25 mg PO PRN PRN 01/26/22 - Allergies Allergies/Adverse Reactions: Allergies Allergy/AdvReac Type Severity Reaction Status Date / Time azithromycin Allergy Unknown Verified 01/26/22 15:53 codeine Allergy Unknown Verified 01/26/22 15:53 cyclobenzaprine HCl * Allergy Unknown Verified 01/26/22 15:53 [From Flexeril] hydrocodone bitartrate * Allergy Unknown Verified 01/26/22 15:53 [From Vicodin] meperidine HCl * Allergy Unknown Verified 01/26/22 15:53 [From Demerol] opium tincture Allergy Unknown Verified 01/26/22 15:53 promethazine HCl * Allergy psychotic Verified 01/26/22 15:53 [From Phenergan] - Social History Does the pt smoke?: No Smoking Status: Never smoker Does the pt drink ETOH?: No Does the pt have substance abuse?: No PD ED PE NORMAL - Vitals Vital signs reviewed: Yes - General General: Alert and oriented X 3, No acute distress, Well developed/nourished, Other (guarding ROM of the right shoulder in particular. ) - Neck Neck: Supple, no meningeal sign, No adenopathy, Other (some tender upper neck midline and then right lateral muscles lower. ) - Cardiac Cardiac: RRR, No murmur - Respiratory Respiratory: Clear bilaterally, Other (no chestwall tenderness. ) - Abdomen Abdomen: Soft, Non tender - Back Back: No spinal TTP - Derm Derm: Normal color, Warm and dry - Extremities Extremities: Other (right clavicle and lateral shoulder tender without deformity. Not tender at AC per se. Scapular tenderness. ROM right shoulder limited by pain. Left shoulder able to reach up and top of head. Right knee tender anterior/patellar area. No effusion. No gross laxity with valgus but hurts. Cruciate wnl. ) Results - Vitals Vitals: Vital Signs - 24 hr 01/26/22 01/26/22 01/26/22 15:49 17:25 18:09 Temperature 36.3 C L Heart Rate 70 18 L 80 Respiratory 16 16 Rate Blood Pressure 120/53 L 111/70 O2 Saturation 98 98 Oxygen O2 Source Room air - Rads (name of study) cervical spine xray Radiology: Prelim report reviewed (normal), See rad report right shoulder xray Radiology: Prelim report reviewed (normal), See rad report right knee xray Radiology: Prelim report reviewed (normal), See rad report PD MEDICAL DECISION MAKING - ED course Complexity details: reviewed results, considered differential, d/w patient Departure - Departure Disposition: 01 Home, Self Care Clinical Impression: Fall from ladder Qualifiers: Encounter type: initial encounter Qualified Code(s): W11.XXXA - Fall on and from ladder, initial encounter Right shoulder strain Qualifiers: Encounter type: initial encounter Qualified Code(s): S46.911A - Strain of unspecified muscle, fascia and tendon at shoulder and upper arm level, right arm, initial encounter Neck muscle strain Qualifiers: Encounter type: initial encounter Qualified Code(s): S16.1XXA - Strain of muscle, fascia and tendon at neck level, initial encounter Knee strain Qualifiers: Encounter type: initial encounter Laterality: right Qualified Code(s): S86.911A - Strain of unspecified muscle(s) and tendon(s) at lower leg level, right leg, initial encounter Condition: Stable Record reviewed to determine appropriate education?: Yes Instructions: ED Sprain Strain Neck, ED Sprain Shoulder Follow-Up: Sylvia Dickson ARNP [Primary Care Provider] - Comments: Your x-rays appear normal to me without any signs of fractures or misalignments. You obviously will still be sore from injuries of falling with some's draining of the shoulder and neck muscles and likely some strain of the knee. Activity as tolerated. Use the sling for the shoulder as needed for comfort over the next several days to week. Gentle range of motion of the neck. Consider some ice to the sore areas this afternoon and evening. Heat is okay to use if you feeling sore and stiff as well. Consider regular anti-inflammatories such as ibuprofen 40 mg 3 times a day with food for the next 3 to 5 days. To that add Tylenol if needed for pains. I would anticipate being sore in the various areas over the next several days to a week and improving during that timeframe. Follow-up if not better. Discharge Date/Time: 01/26/22 18:09
[2022-01-26] MEDS: ACETAMINOPHEN 325 MG TABLET PO STA (17:23)
[2022-01-26] MEDS: IBUPROFEN 400 MG TABLET PO STA (17:24)
--- NOTE | 2022-01-26 17:44 | XRAY Report ---
PROCEDURE: Cervical Spine 2 View INDICATIONS: fall from ladder TECHNIQUE: 4 view(s) of the cervical spine were acquired. COMPARISON: None FINDINGS: Bones: No fractures or dislocations to the T1 level. The lateral masses of C1 appear intact on the odontoid view. No suspicious bony lesions. Soft tissues: No prevertebral soft tissue swelling. IMPRESSION: Unremarkable cervical spine radiographs Reviewed by: Pablito Stokes MD on 01/26/2022 4:42 PM AKCATALINA Approved by: Pablito Stokes MD on 01/26/2022 4:42 PM AKDT Station ID: [id number]
--- NOTE | 2022-01-26 17:46 | XRAY Report ---
PROCEDURE: Knee 3 View RT INDICATIONS: fall from ladder TECHNIQUE: 3 views of the right knee(s) were acquired. COMPARISON: None. FINDINGS: Bones: No fractures or dislocations. No suspicious bony lesions. Moderate interspace narrowing with out marginal osteophyte. No joint effusion. Soft tissues: No joint effusion. No suspicious soft tissue calcifications. IMPRESSION: Moderate osteoarthritis without fracture or foreign body Reviewed by: Pablito Stokes MD on 01/26/2022 4:45 PM AKDT Approved by: Pablito Stokes MD on 01/26/2022 4:45 PM AKDT Station ID: [id number]
--- NOTE | 2022-01-26 17:48 | XRAY Report ---
PROCEDURE: Shoulder 3 View RT INDICATIONS: fall from ladder TECHNIQUE: 3 views of the shoulder were acquired. COMPARISON: None. FINDINGS: Bones: No fractures or dislocations. No suspicious bony lesions. Visualized ribs appear intact. Soft tissues: No suspicious soft tissue calcifications. IMPRESSION: Unremarkable right shoulder radiographs Reviewed by: Pablito Stokes MD on 01/26/2022 4:46 PM AKDT Approved by: Pablito Stokes MD on 01/26/2022 4:46 PM AKDT Station ID: [id number]
[2022-01-26 18:10] VITALS: BP 111/70
== END 2022-01-26 18:09 | disposition home or self-care (01) ==
LOC: ED 15:44
DX: S46.911A Strain of unspecified muscle, fascia and tendon at shoulder and upper arm level, right arm, initial encounter (principal); S16.1XXA Strain of muscle, fascia and tendon at neck level, initial encounter; S86.911A Strain of unspecified muscle(s) and tendon(s) at lower leg level, right leg, initial encounter; W11.XXXA Fall on and from ladder, initial encounter; Y92.009 Unspecified place in unspecified non-institutional (private) residence as the place of occurrence of the external cause
CPT/HCPCS: 72040; 73030; 73562; 99282; 99284; A9270

== ENCOUNTER 2022-06-06 08:00 | Outpatient (CLI) | payer BC, OTHER ==
[2022-06-06 22:16] LABS: BACTERIAL VAGINOSIS DNA NEGATIVE (NEGATIVE); CANDIDA GLABRATA DNA NEGATIVE (NEGATIVE); CANDIDA GROUP DNA NEGATIVE (NEGATIVE); CANDIDA KRUSEI DNA NEGATIVE (NEGATIVE); TRICHOMONAS VAGINALIS DNA NEGATIVE (NEGATIVE)
== END 2022-06-06 23:59 | disposition home or self-care (01) ==
LOC: LAB.N 08:00
PROVIDERS: ATTEND Nurse Practitioner
DX: N89.8 Other specified noninflammatory disorders of vagina (principal)
CPT/HCPCS: 81514

== ENCOUNTER 2023-01-24 14:11 | Outpatient (CLI) | payer BC, OTHER | END 2023-01-24 23:59 | disposition critical access hospital (66) | LOC: EMS 14:11 | DX: R56.9 Unspecified convulsions (principal); H81.09 Meniere's disease, unspecified ear; R11.2 Nausea with vomiting, unspecified | CPT/HCPCS: A0425; A0427 ==

== ENCOUNTER 2023-01-24 14:31 | Emergency (ER) | payer BC, OTHER ==
[2023-01-24] MEDS ORDERED: SODIUM CHLORIDE 0.9% 1,000 ML IV STA (14:39)
[2023-01-24] MEDS ORDERED: METOCLOPRAMIDE 10 MG/2 ML VIAL IVP STA (14:39)
[2023-01-24] MEDS ORDERED: LORazepam 2 MG/ML VIAL IVP STA (14:39)
--- NOTE | 2023-01-24 14:41 | ED Physician Documentation ---
History of Present Illness - Stated complaint Stated Complaint: SEIZURE - History obtained from History obtained from: EMS - Additonal information Additional information: 47-year-old woman presents by ambulance for the evaluation of vertigo and possible seizures. Most of the history is from EMS that she is mildly confused on arrival. Reportedly has a history of Mnire's disease and when she has attacks she has seizures. Patient is unable to state when the last time this happened was. She is vomiting despite the administration of [address]fran on the way here. She does not take antiepileptic drugs. Reportedly had 4 or 5 [id number] seizures today with whole body shaking, that said there was no reported postictal period. Review of the chart shows that she has had occasional visits related to this and was also felt to be migrainous in the past. 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: section, Endometrial ablation, Hysterectomy - Present Medications Home Medications: Ambulatory Orders Medication Instructions Recorded Confirmed Meclizine HCl [Motion Sickness] 25 mg PO PRN PRN 01/26/22 01/24/23 Ondansetron HCl 4 mg PO Q4HR PRN 01/24/23 01/24/23 estradioL [Estradiol (Once Weekly)] 1 each TD 01/24/23 - Allergies Allergies/Adverse Reactions: Allergies Allergy/AdvReac Type Severity Reaction Status Date / Time azithromycin Allergy Unknown Verified 01/24/23 14:50 codeine Allergy Unknown Verified 01/24/23 14:50 cyclobenzaprine HCl * Allergy Unknown Verified 01/24/23 14:50 [From Flexeril] hydrocodone bitartrate * Allergy Unknown Verified 01/24/23 14:50 [From Vicodin] meperidine HCl * Allergy Unknown Verified 01/24/23 14:50 [From Demerol] opium tincture Allergy Unknown Verified 01/24/23 14:50 promethazine HCl * Allergy psychotic Verified 01/24/23 14:50 [From Phenergan] - Social History Does the pt smoke?: No Smoking Status: Never smoker Does the pt drink ETOH?: No Does the pt have substance abuse?: No - POLST Patient has POLST: No PD ED PE NORMAL - Vitals Vital signs reviewed: Yes - General General: Other (She is alert and oriented to person and place. She knows she is [age] years old but seems unsure. Unclear on recent events. Actively vomi ting.) - HEENT HEENT: PERRL, Other (Unable to cooperate with extraocular movements on initial evaluation.) - Neck Neck: Supple, no meningeal sign, No bony TTP - Cardiac Cardiac: RRR, No murmur - Respiratory Respiratory: No respiratory distress, Clear bilaterally - Abdomen Abdomen: Normal bowel sounds, Soft, Non tender - Neuro Neuro: No motor deficit, No sensory deficit Eye Opening: To Voice Motor: Obeys Commands Verbal: Confused (Mild) GCS Score: 13 Results - Vitals Vitals: Vital Signs - 24 hr 01/24/23 01/24/23 01/24/23 14:43 16:51 18:26 Temperature 36.7 C Heart Rate 69 96 77 Respiratory 16 18 18 Rate Blood Pressure 140/85 H 100/52 L 100/63 O2 Saturation 100 99 95 Oxygen O2 Source Room air - EKG (time done) 1445 EKG releavant findings:: EKG personally interpreted by author of this note. Relevant findings are: Rate: Rate (enter#) (85) Rhythm: NSR [place]: Normal Intervals: Normal VA QRS: Normal Ischemia: Normal ST segments - Labs Labs: Laboratory Tests 01/24/23 01/24/23 01/24/23 14:52 14:52 14:52 WBC 8.2 RBC 4.31 Hgb 12.9 Hct 37.8 MCV 87.7 MCH 29.9 MCHC 34.1 RDW 12.7 Plt Count 230 MPV 9.8 Neut # (Auto) 6.4 Lymph # (Auto) 1.4 L [place] # (Auto) 0.4 Eos # (Auto) 0.1 Baso # (Auto) 0.0 Absolute Nucleated RBC 0.00 Nucleated RBC % 0.0 Sodium 136 Potassium 3.3 L Chloride 109 Carbon Dioxide 20 L Anion Gap 7.0 BUN 16 Creatinine 0.5 Estimated GFR (MDRD) 132 Glucose 130 H Calcium 8.2 L Magnesium 1.6 L Total Bilirubin 0.7 AST 32 ALT 49 Alkaline Phosphatase 63 Total Protein 6.3 L Albumin 3.6 Globulin 2.7 Albumin/Globulin Ratio 1.3 Prolactin 34.69 Urine HCG, Qual Urine Opiates Screen Ur Oxycodone Screen Urine Methadone Screen Ur Propoxyphene Screen Ur Barbiturates Screen Ur Tricyclics Screen Ur Phencyclidine Scrn Ur Amphetamine Screen U Methamphetamines Scrn U Benzodiazepines Scrn Urine Cocaine Screen U Cannabinoids Screen Ethyl Alcohol < 5.0 01/24/23 01/24/23 16:54 16:54 WBC RBC Hgb Hct MCV MCH MCHC RDW Plt Count MPV Neut # (Auto) Lymph # (Auto) [place] # (Auto) Eos # (Auto) Baso # (Auto) Absolute Nucleated RBC Nucleated RBC % Sodium Potassium Chloride Carbon Dioxide Anion Gap BUN Creatinine Estimated GFR (MDRD) Glucose Calcium Magnesium Total Bilirubin AST ALT Alkaline Phosphatase Total Protein Albumin Globulin Albumin/Globulin Ratio Prolactin Urine HCG, Qual NEGATIVE Urine Opiates Screen NEGATIVE Ur Oxycodone Screen NEGATIVE Urine Methadone Screen NEGATIVE Ur Propoxyphene Screen NEGATIVE Ur Barbiturates Screen NEGATIVE Ur Tricyclics Screen NEGATIVE Ur Phencyclidine Scrn NEGATIVE Ur Amphetamine Screen NEGATIVE U Methamphetamines Scrn NEGATIVE U Benzodiazepines Scrn POSITIVE H Urine Cocaine Screen NEGATIVE U Cannabinoids Screen NEGATIVE Ethyl Alcohol - Rads (name of study) CT of the head without contrast is unremarkable Relevant Findings:: Final report received, EMP independent interpretation of test PD Medical Decision Making - ED course ED course: Significant other at the bedside and independent history obtained 2:44 PM. She has attacks of Mnire's quite frequently, maybe weekly. Confusion is not uncommon during these attacks but the shaking episodes witnessed today are new. CBC reviewed and normal. CMP reviewed and basically normal. Prolactin modestly elevated at 34 which could be consistent with seizure. Urine drug screen positive only for benzodiazepines which she had received here prior to giving a urine sample, otherwise negative. She was treated here for her vomiting and anxiety and vertigo with 10 mg of Reglan and 1 mg of Ativan. In addition to the 50 mg of meclizine she had received at home prior to arrival this led to some prolonged sedation taking several hours to wear off at which point she was asymptomatic. Discussed with patient and significant other that it is unclear if she had seizures today but recommended follow-up with neurology and no driving in the interim. They voiced understanding. Departure - Departure Disposition: 01 Home, Self Care Clinical Impression: Acute onset of severe vertigo Condition: Good Record reviewed to determine appropriate education?: Yes Instructions: ED Vertigo Unspecified Follow-Up: Sylvia Dickson ARNP [Provider Admit Priv/Credential] - Comments: You were seen today for some episodes of shaking associated with an exacerbation of your Mnire's disease. You had already had a couple of meclizine at home and you were still quite symptomatic so you are treated here with Reglan and At becca IV with excellent relief of your symptoms but some prolonged sleepiness. It is unclear if you are shaking episodes represented seizures. Out of an abundance of caution you should not drive for 6 months or until cleared by neurologist, you should call [facility]'s office for follow-up visit and consideration for referral to neurology. Return if worse.
[2023-01-24 15:00] LABS: BASOPHILS % (AUTO) 0.2 %; EOSINOPHILS # (AUTO) 0.1 10^3/uL (0.0-0.7); HCT - HEMATOCRIT 37.8 % (37.0-47.0); HGB - HEMOGLOBIN 12.9 g/dL (12.0-16.0); LYMPHOCYTES # (AUTO) 1.4 10^3/uL (1.5-3.5); LYMPHOCYTES % (AUTO) 16.5 %; MEAN CORPUSCULAR HEMOGLOBIN 29.9 pg (27.0-31.0); MEAN CORPUSCULAR HGB CONC 34.1 g/dL (32.0-36.0); MEAN CORPUSCULAR VOLUME 87.7 fL (81.0-99.0); MEAN PLATELET VOLUME 9.8 fL (7.9-10.8); MONOCYTES # (AUTO) 0.4 10^3/uL (0.0-1.0); MONOCYTES % (AUTO) 4.6 %; NEUTROPHILS # (AUTO) 6.4 10^3/uL (1.5-6.6); NEUTROPHILS % (AUTO) 77.3 %; PLT - PLATELET COUNT 230 10^3/uL (130-450); RED BLOOD COUNT 4.31 10^6/uL (4.20-5.40); RED CELL DISTRIBUTION WIDTH 12.7 % (12.0-15.0); WHITE BLOOD COUNT 8.2 x10^3/uL (4.8-10.8)
[2023-01-24 15:11] LABS: ALBUMIN 3.6 g/dL (3.2-5.5); ALBUMIN/GLOBULIN RATIO 1.3 (1.0-2.2); ALKALINE PHOSPHATASE 63 IU/L (42-121); ALT ALANINE AMINOTRANSFERASE 49 IU/L (10-60); AST ASPARTATE AMINOTRANSFERASE 32 IU/L (10-42); BILIRUBIN,TOTAL 0.7 mg/dL (0.2-1.0); BUN - BLOOD UREA NITROGEN 16 mg/dL (6-20); CALCIUM 8.2 mg/dL (8.5-10.3); CARBON DIOXIDE - CO2 20 mmol/L (21-32); CHLORIDE 109 mmol/L (101-111); CREATININE 0.5 mg/dL (0.4-1.0); ETOH - ETHANOL < 5.0 mg/dL; GFR - MDRD 132 (>89); GLUCOSE 130 mg/dL (70-100); MAGNESIUM 1.6 mg/dL (1.7-2.8); POTASSIUM 3.3 mmol/L (3.5-5.0); SODIUM 136 mmol/L (135-145); TOTAL PROTEIN 6.3 g/dL (6.7-8.2)
--- NOTE | 2023-01-24 15:30 | CT Report ---
PROCEDURE: HEAD WO INDICATIONS: vertigo/sz TECHNIQUE: Noncontrast 4.5 mm thick angled axial sections acquired from the foramen magnum to the vertex. For r adiation dose reduction, the following was used: automated exposure control, adjustment of mA and/or kV according to patient size. COMPARISON: CT head 12/14/2019 FINDINGS: Image quality: Excellent. CSF spaces: Basal cisterns are patent. No extra-axial fluid collections. Ventricles are normal in size and shape. Brain: No midline shift. No intracranial masses or hemorrhage. [place]-white matter interface is norm al. Skull and face: Calvarium and visualized facial bones are intact, without suspicious lesions. Sinuses: Visualized sinuses and mastoids are clear. IMPRESSION: 1. No acute intracranial process. Reviewed by: Kelsy Houser MD on 01/24/2023 3:29 PM PDT Approved by: Kelsy Houser MD on 01/24/2023 3:29 PM PDT Station ID: [id number]
[2023-01-24 17:02] LABS: HCG UR QUAL NEGATIVE
[2023-01-24 17:27] LABS: MUDS CUTOFF CONCENTRATIONS CUTOFF CONC BELOW:
[2023-01-24 17:40] LABS: AMPHETAMINE SCREEN,URINE NEGATIVE (NEGATIVE); BARBITURATE SCREEN,UR NEGATIVE (NEGATIVE); BENZODIAZEPINES SCREEN, URINE POSITIVE (NEGATIVE); COCAINE SCREEN URINE NEGATIVE (NEGATIVE); METHADONE SCREEN, URINE NEGATIVE (NEGATIVE); METHAMPHETAMINES SCREEN, URINE NEGATIVE (NEGATIVE); OPIATE SCREEN, URINE NEGATIVE (NEGATIVE); OXYCODONE SCREEN, URINE NEGATIVE (NEGATIVE); PROPOXYPHENE SCREEN, URINE NEGATIVE (NEGATIVE); THC CANNABINOID SCREEN, URINE NEGATIVE (NEGATIVE); TRICYCLIC ANTIDEPRESSANT,URINE NEGATIVE (NEGATIVE)
[2023-01-24 18:27] VITALS: BP 100/63
== END 2023-01-24 19:09 | disposition home or self-care (01) ==
LOC: EDUNIT# → ED 14:31
DX: R42 Dizziness and giddiness (principal); H81.09 Meniere's disease, unspecified ear
CPT/HCPCS: 36415; 70450; 80053; 80306; 80320; 81025; 83735; 84146; 85025; 93005; 96374; 99283; 99284; J2060; J2765